=== PATIENT | female | born 1990 | race Caucasian/White ===

== ENCOUNTER 2017-09-02 14:15 | Inpatient (IN) | payer BC, MEDICAID ==
[2017-09-02] MEDS ORDERED: Sodium Chloride 0.9% 10 ML Syringe FLUSH PRN (14:22)
[2017-09-02] MEDS ORDERED: Ondansetron 4 MG/2 ML SDV IVPUSH PRN (14:22)
[2017-09-02] MEDS ORDERED: Lactated Ringers 1,000 ML IV SCH (14:30)
[2017-09-02] MEDS ORDERED: Oxytocin/Lactated Ringers 10 UNIT/1,000 ML BAG IV SCH ×2 (14:30)
--- NOTE | 2017-09-02 14:50 | PCM.LDHP ---
L&D History of Present Illness - General Date of Service: 09/02/17 Admit Problem/Dx: Patient Status Order with Admit Dx/Problem 09/02/17 14:23 Patient Status [ADT] Routine Admission Diagnosis/Problem Admission Diagnosis/Problem Gestational hypertension Source of Information: Patient History Limitations: Reports: No Limitations - History of Present Illness Introduction:: Jose Carlos Talavera is a 26 year old at 39 weeks 1 day (CONSTANCE 09/08/2017) by 11 week ultrasound. Patient is being induced for gestational hypertension after having continued elevated blood pressures in clinic today with blood pressure of 150/100 and 148/90 on repeat. She is overall doing well at today's clinic visit but did have complaint of mild headache but had not taken any medication for this. She was having some contractions last evening and throughout the day but her biggest complaint at today's clinic visit was suprapubic pain. She denies any leaking of fluid or vaginal bleeding but has had increased amounts of mucus discharge and thinks she may lost her mucous plug on Wednesday after her cervical exam. Reports good movement. She denies any vision changes or right upper quadrant pain. Reports that her sugars have been well controlled over the last 1.5 weeks. Present Illness Comments:: Jose Carlos Talavera is a 26 year old at 39 weeks 1 day (CONSTANCE 09/08/2017) by 11 week ultrasound. She has had routine care with Dr. Urias since 11 weeks gestational age. Her labs show O+ blood type with negative antibody screen. Her hematocrit was 42.8 and hemoglobin of 14.6 on 02/09/2017 and her platelets were 304 at that time. She is rubella immune. Her RPR, hepatitis B surface antigen and HIV were all negative. Gonorrhea and chlamydia swab were negative. She had a normal anatomy ultrasound at 20 weeks gestational age. She failed her one-hour glucose tolerance screen with a value of 153 and also failed her 3 hour glucose tolerance test with values of fasting with 105, 1 hour of 185, 2 hour with 139 and 3 hour with 123. On 06/22/2017 with her 1 hour glucose test her hemoglobin was 13.1 and hematocrit was 38.6 and her platelets were 239. She was GBS negative. Her hematocrit on 08/31/2017 was 40.7 and hemoglobin was 13.3 and platelets were 268. Her has been, complicated by A1 gestational diabetes that has overall been well controlled, history of anxiety and depression not on medication during the . Plan at this time is to start on sertraline 25 mg daily for 8 days and then increasing to 50 mg daily after that dose. Past Medical History : 2 Para: 1 Psychiatric History: Reports: Anxiety, Depression Social & Family History - Tobacco Use Smoking Status *Q: Former Smoker (Quit with finding out she was ) - Alcohol Use Alcohol Use History: No - Recreational Drug Use Recreational Drug Use: No H&P Review of Systems - Review of Systems: Review Of Systems: See Below General: Denies: Fever, Chills, Malaise, Weakness HEENT: Reports: Sinus Congestion. Denies: Eye Pain, Post Nasal Drip, Sore Throat, Visual Changes Pulmonary: Denies: Shortness of Breath, Wheezing, Cough Cardiovascular: Denies: Chest Pain, Palpitations, Dyspnea on Exertion Gastrointestinal: Denies: Abdominal Pain, Constipation, Diarrhea, Nausea, Vomiting Genitourinary: Denies: Dysuria, Frequency, Burning, Pain, Urgency Musculoskeletal: Reports: Other (Suprapubic pain). Denies: Back Pain, Muscle Pain Skin: Denies: Rash, Lesions Psychiatric: Reports: Anxiety. Denies: Depression Neurological: Reports: Headache (This morning) Hematologic/Lymphatic: Denies: Anemia L&D Exam - Exam Exam: See Below - OB Specific Contraction Duration (sec): None Contraction Frequency (min): None Movement: Active Heart Tones: Present Heart Tones per Min: 130 Heart Rate (FHR) Variability: Moderate (6-25 bmp) Presentation: Vertex Estimated Weight: 8 pounds by [employer] - Muñoz Score Muñoz Score Cervix Position: Midposition Muñoz Score Consistency: Soft Muñoz Score Effacement: 51-70% Muñoz Score Dilation: 3-4 cm Muñoz Score 's Station: -3 Muñoz Score Total: 7 - Exam General: Alert, Oriented, Cooperative HEENT: Conjunctiva Clear, EOMI Neck: Supple, Trachea Midline Lungs: Clear to Auscultation, Normal Respiratory Effort Cardiovascular: Regular Rate, Regular Rhythm GI/Abdominal Exam: Soft, Non-Tender, No Distention. No: Guarding, Rigid, Rebound Genitourinary: Normal external exam Back Exam: Normal Inspection, Full Range of Motion Extremities: Pedal Edema (1+ in bilateral lower extremities to knees) Skin: Warm, Dry, Intact Psychiatric: Alert, Normal Affect, Normal Mood - Problem List (1) 39 weeks gestation of SNOMED Code(s): 39069299 ICD Code: Z3A.39 - 39 WEEKS GESTATION OF Status: Acute Current Visit: Yes (2) Gestational hypertension SNOMED Code(s): 77440741 ICD Code: O13.9 - GESTATIONAL HTN W/O SIGNIFICANT PROTEINURIA, UNSP TRIMESTER Status: Acute Current Visit: Yes (3) Gestational diabetes SNOMED Code(s): 75060464 ICD Code: O24.419 - GESTATIONAL DIABETES MELLITUS IN , UNSP CONTROL Status: Acute Current Visit: Yes (4) Anxiety and depression SNOMED Code(s): 72147392 ICD Code: F41.9 - ANXIETY DISORDER, UNSPECIFIED; F32.9 - MAJOR DEPRESSIVE DISORDER, SINGLE EPISODE, UNSPECIFIED Status: Acute Current Visit: Yes Problem List Initiated/Reviewed/Updated: Yes Orders Last 24hrs: Active Orders 24 hr Category Date Time Status Patient Status [ADT] Routine ADT 09/02/17 14:23 Ordered Activity as Tolerated [RC] PFP Care 09/02/17 14:23 Ordered Bedrest [RC] ASDIRECTED Care 09/02/17 14:23 Ordered Blood Glucose Check, Bedside [RC] Q4HR Care 09/02/17 17:00 Ordered Communication Order [RC] ASDIRECTED Care 09/02/17 14:23 Ordered Communication Order [RC] ASDIRECTED Care 09/02/17 14:23 Ordered Communication Order [RC] ASDIRECTED Care 09/02/17 14:23 Ordered Communication Order [RC] ASDIRECTED Care 09/02/17 14:23 Ordered Heart Tones [RC] ASDIRECTED Care 09/02/17 14:23 Ordered Notify Provider Status Change [RC] ASDIRECTED Care 09/02/17 14:29 Ordered Notify Provider Vital Signs [RC] PRN Care 09/02/17 14:24 Active Notify Provider [RC] ASDIRECTED Care 09/02/17 14:23 Active Notify Provider [RC] PFP Care 09/02/17 14:23 Ordered Notify Provider [RC] PRN Care 09/02/17 14:23 Active Oxygen Therapy [RC] PRN Care 09/02/17 14:23 Ordered Peripheral IV Care [RC] . DIRECTED Care 09/02/17 14:23 Ordered Pump Management, Intrathecal [RC] ASDIRECTED Care 09/02/17 14:24 Ordered Urinary Catheter Assessment [RC] ASDIRECTED Care 09/02/17 14:23 Ordered Vaginal Exam [RC] ASDIRECTED Care 09/02/17 14:23 Ordered Vital Signs [RC] ASDIRECTED Care 09/02/17 14:23 Ordered Vital Signs [RC] PER UNIT ROUTINE Care 09/02/17 14:23 Active Consistent Carbohydrate Diet [DIET] Diet 09/02/17 Lunch Ordered CBC WITH AUTO DIFF [HEME] Routine Lab 09/02/17 14:22 Ordered COMPREHENSIVE METABOLIC PN,CMP [CHEM] Routine Lab 09/02/17 14:22 Ordered PROTEIN/CREATININE RATIO,URINE [URCHEM] Routine Lab 09/02/17 14:30 Ordered Lactated Ringers [Ringers, Lactated] 1,000 ml Med 09/02/17 14:30 Ordered IV ASDIRECTED Lactated Ringers [Ringers, Lactated] 1,000 ml Med 09/02/17 14:30 Ordered IV ASDIRECTED Ondansetron [Zofran] Med 09/02/17 14:22 Ordered 4 mg IVPUSH Q4H PRN Oxytocin/Lactated Ringers [Pitocin in LR 10 Units/1,000 Med 09/02/17 14:30 Ordered ML] 10 unit in 1,000 ml IV .CONTINUOUS Oxytocin/Lactated Ringers [Pitocin in LR 10 Units/1,000 Med 09/02/17 14:30 Ordered ML] 10 unit in 1,000 ml IV TITRATE Sodium Chloride 0.9% [Saline Flush] Med 09/02/17 14:22 Ordered 10 ml FLUSH ASDIRECTED PRN Blood Pressure [OM.PC] ASDIRECTED Oth 09/02/17 14:30 Ordered Deep Tendon Reflexes [WOMSER] ASDIRECTED Oth 09/02/17 14:30 Ordered Electronic Heart Tones Ext w TOCO [WOMSER] Oth 09/02/17 14:23 Ordered Routine Electronic Heart Tones Internal [WOMSER] Per Unit Oth 09/02/17 14:23 Ordered Routine Peripheral IV Insertion Adult [OM.PC] Routine Oth 09/02/17 14:23 Ordered Peripheral IV Insertion Adult [OM.PC] Routine Oth 09/02/17 14:23 Ordered Resuscitation Status Routine Resus Stat 09/02/17 14:22 Ordered Medication Orders Lactated Ringer's (Ringers, Lactated) 1,000 mls @ 100 mls/hr IV ASDIRECTED HEMANTH Lactated Ringer's (Ringers, Lactated) 1,000 mls @ 40 mls/hr IV ASDIRECTED HEMANTH Oxytocin/Lactated Ringer's (Pitocin In Lr 10 Units/1,000 Ml) 10 unit in 1,000 mls @ 100 mls/hr IV .CONTINUOUS HEMANTH Oxytocin/Lactated Ringer's (Pitocin In Lr 10 Units/1,000 Ml) 10 unit in 1,000 mls @ 12 mls/hr IV TITRATE HEMANTH; Protocol Ondansetron HCl (Zofran) 4 mg IVPUSH Q4H PRN PRN Reason: Nausea/Vomiting Sodium Chloride (Saline Flush) 10 ml FLUSH ASDIRECTED PRN PRN Reason: Keep Vein Open Assessment/Plan Comment:: Refer to observation for medically indicated induction of labor with gestational hypertension Start induction of labor with Pitocin Continuous monitoring while on Pitocin Place IV and have Lactated Ringer's at 125 ml/hr if not tolerating regular diet May have small amounts of carbohydrate controlled diet Check fingerstick blood glucose 2 hours after meals and every 4 hours Activity as tolerated [May have epidural as desired] Plans to breast and bottle feed after delivery Anticipate vaginal delivery unless otherwise indicated Lorenzo Haley M.D. 2:56 PM 09/02/2017
[2017-09-02] MEDS: Lactated Ringers 1,000 ML IV SCH ×3 (15:20→21:33)
--- NOTE | 2017-09-02 16:53 | PCM.PNLD ---
Labor Progress Note - VS & Meds Vital Signs: Last Vital Signs Temp 37.5 C 09/02/17 14:23 Pulse 92 09/02/17 14:23 Resp 18 09/02/17 14:23 BP 153/89 H 09/02/17 14:23 Pulse Ox Active Medications: Current Medications Lactated Ringer's (Ringers, Lactated) 1,000 mls @ 100 mls/hr IV ASDIRECTED HEMANTH Last Admin: 09/02/17 15:20 Dose: 100 mls/hr Lactated Ringer's (Ringers, Lactated) 1,000 mls @ 40 mls/hr IV ASDIRECTED HEMANTH Oxytocin/Lactated Ringer's (Pitocin In Lr 10 Units/1,000 Ml) 10 unit in 1,000 mls @ 100 mls/hr IV .CONTINUOUS HEMANTH Oxytocin/Lactated Ringer's (Pitocin In Lr 10 Units/1,000 Ml) 10 unit in 1,000 mls @ 12 mls/hr IV TITRATE HEMANTH; Protocol Last Titration: 09/02/17 16:39 Dose: 6 munits/min, 36 mls/hr Ondansetron HCl (Zofran) 4 mg IVPUSH Q4H PRN PRN Reason: Nausea/Vomiting Sodium Chloride (Saline Flush) 10 ml FLUSH ASDIRECTED PRN PRN Reason: Keep Vein Open - Uterine Contractions Uterine Monitoring Mode: External [place] Contraction Frequency (min): 3-4 Contraction Duration (sec): 45 Contraction Intensity: Mild to Moderate Uterine Resting Tone: Soft - Monitoring Monitor Mode: Doppler/Auscultation Heart Rate (FHR) Baseline: 140 Heart Rate (FHR) Variability: Moderate (6-25 bmp) Accelerations: Present, 15x15 Decelerations: Variable, Intermittent (<50% x 20 min) Strip Review: Category II - Vaginal Exam Dilation (cm): 4 Effacement (Percent): 80 Station: -3 Cervical Position: Midposition Sterile Vaginal Exam Performed By: Lorenzo Haley Vaginal Exam Comment: Artificial rupture of membranes with return of clear fluid. Mom and baby tolerated well. - Labor Progress (Free Text) Labor Progress: Continuing to progress well AROM with clear fluid. Continuous monitoring Continue FSBS checks every 4 hours Monitor blood pressures per unit protocol Anticipate vaginal delivery unless otherwise indicated Lorenzo Haley MD 4:53 PM 09/02/2017
[2017-09-02] MEDS ORDERED: Bupivacaine 0.25% 10 ML SDV ONE (18:00)
[2017-09-02] MEDS ORDERED: ePHEDrine 50 MG/ML SDV IVPUSH PRN (18:40)
[2017-09-02] MEDS ORDERED: fentaNYL 100 MCG/2 ML SDV EPIDUR PRN (18:40)
[2017-09-02] MEDS ORDERED: diphenhydrAMINE 50 MG/ML SDV IVPUSH PRN (18:40)
[2017-09-02] MEDS ORDERED: Bupivacaine/fentaNYL/NS 100 ML Bag EPIDUR SCH (18:45)
--- NOTE | 2017-09-02 19:04 | PCM.PREANE ---
Preanesthetic Assessment - Anesthesia/Transfusion/Family Hx Anesthesia History: Prior Anesthesia Without Reaction Family History of Anesthesia Reaction: No Transfusion History: No Prior Transfusion(s) - Review of Systems General: No Symptoms Pulmonary: No Symptoms Cardiovascular: No Symptoms Gastrointestinal: No Symptoms Neurological: No Symptoms Other: Reports: Diabetes (gestational) - Physical Assessment Respiratory Rate: 18 Vital Signs: Last Vital Signs Temp 99.5 F 09/02/17 14:23 Pulse 92 09/02/17 14:23 Resp 18 09/02/17 14:23 BP 153/89 H 09/02/17 14:23 Pulse Ox Height: 5 ft 5 in Weight: 100.329 kg ASA Class: 2 Mental Status: Alert & Oriented x3 Airway Class: Mallampati = 1 Dentition: Reports: Normal Dentition Thyro-Mental Finger Breadths: 3 Mouth Opening Finger Breadths: 3 ROM/Head Extension: Full Lungs: Clear to Auscultation, Normal Respiratory Effort Cardiovascular: Regular Rate, Regular Rhythm - Lab Values: Laboratory Last Values WBC 10.47 K/mm3 (3.98-10.04) H 09/02/17 14:45 RBC 4.13 M/mm3 (3.98-5.22) 09/02/17 14:45 Hgb 11.9 gm/L (11.2-15.7) 09/02/17 14:45 Hct 36.6 % (34.1-44.9) 09/02/17 14:45 MCV 88.6 fl (79.4-94.8) 09/02/17 14:45 MCH 28.8 pg (25.6-32.2) 09/02/17 14:45 MCHC 32.5 g/dl (32.2-35.5) 09/02/17 14:45 RDW Std Deviation 46.0 fL (36.4-46.3) 09/02/17 14:45 Plt Count 239 K/mm3 (182-369) 09/02/17 14:45 MPV 10.6 fl (9.4-12.3) 09/02/17 14:45 Neut % (Auto) 71.9 % (34.0-71.1) H 09/02/17 14:45 Lymph % (Auto) 18.1 % (19.3-51.7) L 09/02/17 14:45 [place] % (Auto) 9.3 % (4.7-12.5) 09/02/17 14:45 Eos % (Auto) 0.4 (0.7-5.8) L 09/02/17 14:45 Baso % (Auto) 0.2 % (0.1-1.2) 09/02/17 14:45 Neut # (Auto) 7.54 K/mm3 (1.56-6.13) H 09/02/17 14:45 Lymph # (Auto) 1.89 K/mm3 (1.18-3.74) 09/02/17 14:45 [place] # (Auto) 0.97 K/mm3 (0.24-0.36) H 09/02/17 14:45 Eos # (Auto) 0.04 K/mm3 (0.04-0.36) 09/02/17 14:45 Baso # (Auto) 0.02 K/mm3 (0.01-0.08) 09/02/17 14:45 Sodium 138 mEq/L (136-145) 09/02/17 14:45 Potassium 3.6 mEq/L (3.5-5.1) 09/02/17 14:45 Chloride 105 mEq/L (98-107) 09/02/17 14:45 Carbon Dioxide 22 mEq/L (21-32) 09/02/17 14:45 Anion Gap 14.6 (5-15) 09/02/17 14:45 BUN 7 mg/dL (7-18) 09/02/17 14:45 Creatinine 0.6 mg/dL (0.55-1.02) 09/02/17 14:45 Est Cr Clr Drug Dosing 130.10 mL/min 09/02/17 14:45 Estimated GFR (MDRD) > 60 mL/min (>60) 09/02/17 14:45 BUN/Creatinine Ratio 11.7 (14-18) L 09/02/17 14:45 Glucose 88 mg/dL (74-106) 09/02/17 14:45 POC Glucose 75 mg/dL (70-105) 09/02/17 17:16 Calcium 8.7 mg/dL (8.5-10.1) 09/02/17 14:45 Total Bilirubin 0.2 mg/dL (0.2-1.0) 09/02/17 14:45 AST 35 U/L (15-37) 09/02/17 14:45 ALT 30 U/L (14-59) 09/02/17 14:45 Alkaline Phosphatase 138 U/L (46-116) H 09/02/17 14:45 Total Protein 6.7 g/dl (6.4-8.2) 09/02/17 14:45 Albumin 2.7 g/dl (3.4-5.0) L 09/02/17 14:45 Globulin 4.0 gm/dL 09/02/17 14:45 Albumin/Globulin Ratio 0.7 (1-2) L 09/02/17 14:45 Ur Random Creatinine 136.7 mg/dL (30.0-125.0) H 09/02/17 16:50 U Random Total Protein 13.5 mg/dL (0.0-11.8) H 09/02/17 16:50 Protein/Creatinin Ratio 98.8 mg/g (0-149) 09/02/17 16:50 - Allergies Allergies/Adverse Reactions: Allergies Allergy/AdvReac Type Severity Reaction Status Date / Time No Known Allergies Allergy Verified 09/02/17 15:09 - Acknowledgements Anesthesia Type Planned: Epidural Pt an Appropriate Candidate for the Planned Anesthesia: Yes Alternatives and Risks of Anesthesia Discussed w Pt/Guardian: Yes Pt/Guardian Understands and Agrees with Anesthesia Plan: Yes PreAnesthesia Questionnaire Cardiovascular History: Reports: Hypertension (with preg) Respiratory History: Reports: None Gastrointestinal History: Reports: None 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: Psychiatric History: Reports: Anxiety, Depression Endocrine/Metabolic History: Reports: Diabetes, Gestational - Past Surgical History HEENT Surgical History: Reports: Tonsillectomy GI Surgical History: Reports: Colonoscopy, EGD - History Comment History Comment: vits - SUBSTANCE USE Smoking Status *Q: Former Smoker (quit nov) Tobacco Use Within Last Twelve Months: Cigarettes Second Hand Smoke Exposure: No Days Per Week of Alcohol Use: 0 Recreational Drug Use History: No - CURRENT (IN HOUSE) MEDS Current Meds: Current Medications Diphenhydramine HCl (Benadryl) 25 mg IVPUSH Q6H PRN PRN Reason: pruritis Ephedrine Sulfate (Ephedrine Sulfate) 5 mg IVPUSH ASDIRECTED PRN PRN Reason: Hypotension Fentanyl (Sublimaze) 100 mcg EPIDUR Q3H PRN PRN Reason: Pain Fentanyl/Bupivacaine HCl (Fentanyl/Bupivacaine/Ns 2 Mcg-0.125% 100 Ml) 100 ml EPIDUR ASDIRECTED HEMANTH Lactated Ringer's (Ringers, Lactated) 1,000 mls @ 100 mls/hr IV ASDIRECTED HEMANTH Last Admin: 09/02/17 15:20 Dose: 100 mls/hr Lactated Ringer's (Ringers, Lactated) 1,000 mls @ 40 mls/hr IV ASDIRECTED HEMANTH Oxytocin/Lactated Ringer's (Pitocin In Lr 10 Units/1,000 Ml) 10 unit in 1,000 mls @ 100 mls/hr IV .CONTINUOUS HEMANTH Oxytocin/Lactated Ringer's (Pitocin In Lr 10 Units/1,000 Ml) 10 unit in 1,000 mls @ 12 mls/hr IV TITRATE HEMANTH; Protocol Last Titration: 09/02/17 18:16 Dose: 7 munits/min, 42 mls/hr Ondansetron HCl (Zofran) 4 mg IVPUSH Q4H PRN PRN Reason: Nausea/Vomiting Sodium Chloride (Saline Flush) 10 ml FLUSH ASDIRECTED PRN PRN Reason: Keep Vein Open
[2017-09-02] MEDS ORDERED: Acetaminophen 325 MG Tab PO PRN (19:14)
[2017-09-02] MEDS ORDERED: Carboprost Tromethamine 250 MCG/1 ML Amp ONE (23:17)
--- NOTE | 2017-09-03 | PCM.DEL ---
L & D Note - General Info Date of Service: 09/02/17 Mother's Due Date: 09/08/17 - Delivery Note Labor: Induced by Oxytocin Delivery Outcome: Stillbirth Delivery Method: Spontaneous Vaginal Delivery-Single Presentation: Left Occiput Anterior (BERNADINE) Nuchal Cord: Present, Reduced (x 1) Anesthesia Type: Epidural Amniotic Fluid Description: Clear Episiotomy Type: None Laceration: None Placenta: Intact, Spontaneous Cord: 3 Vessels Estimated Blood Loss: 650 Resuscitation Needed: No [place]: Stimulated, Warmed, [place] Used Provider: Clovis Urias Score 1 min: 8 Score 5 min: 9 Post Delivery Events: Hemorrhage (650 mL, received pitocin, hemabate and cytotec PO) Second Stage Interventions: Reports: Pushing Effectively, Pushing, Stirrups/Leg Supports Delivery Comments (Free Text/Narrative):: Stage I: Oleg Talavera was admitted for medical induction of labor in the setting of gestational hypertension. On admission her cervix was dilated to 3 cm. She was GBS negative. She was started on Pitocin for induction of labor. She had artificial rupture membranes with clear fluid. She was given an epidural for anesthesia. She had her fingerstick blood glucoses checked throughout labor due to gestational diabetes and they were all within normal limits. She had 1 severe range blood pressure that was not sustained and did not require treatment. She progressed to complete and pushing. Stage II: On 09/02/2017 she had a normal vaginal delivery of a live female at 2305. Apgars of 8 & 9. Weight of 3080 g (6 lbs 13 oz). Length of 20 inches. There was K single nuchal cord that was reduced prior to delivery of the shoulders. Infant was delivered in BERNADINE position. The cord was doubly clamped and cut by father of . Infant was [placed on mother's abdomen]. Stage III: She had a [spontaneous] delivery of an [intact] placenta in [[place]] presentation. [Three] vessel cord. She was given pitocin and fundal massage. She had no lacerations. She had continued heavy bleeding with uterine atony and was given Hemabate 250 mcg IM. She continued to have small moderate amount of bleeding after dose of Hemabate and had straight catheter with return of approximately 200 mL of urine. She had minimal vaginal bleeding at this time after clots were cleared out of the lower uterine segment. She is given Cytotec 1000 mcg by mouth after delivery to help with uterine tone. [Mom and baby were stable to recovery]. EBL of 650 mL. Lorenzo Haley MD 11:59 PM 09/02/2017 - General Info Date of Service: 09/02/17 - Patient Data Vitals - Most Recent: Last Vital Signs Temp 37.5 C 09/02/17 14:23 Pulse 92 09/02/17 14:23 Resp 18 09/02/17 19:04 BP 153/89 H 09/02/17 14:23 Pulse Ox Weight - Most Recent: 100.329 kg I&O - Last 24 Hours: Intake & Output 09/02/17 09/02/17 09/03/17 14:59 22:59 06:59 Intake Total 0 Balance 0 Lab Results Last 24 Hours: Laboratory Results - last 24 hr 09/02/17 09/02/17 09/02/17 Range/Units 14:45 14:45 16:50 WBC 10.47 H (3.98-10.04) K/mm3 RBC 4.13 (3.98-5.22) M/mm3 Hgb 11.9 (11.2-15.7) gm/L Hct 36.6 (34.1-44.9) % MCV 88.6 (79.4-94.8) fl MCH 28.8 (25.6-32.2) pg MCHC 32.5 (32.2-35.5) g/dl RDW Std Deviation 46.0 (36.4-46.3) fL Plt Count 239 (182-369) K/mm3 MPV 10.6 (9.4-12.3) fl Neut % (Auto) 71.9 H (34.0-71.1) % Lymph % (Auto) 18.1 L (19.3-51.7) % [place] % (Auto) 9.3 (4.7-12.5) % Eos % (Auto) 0.4 L (0.7-5.8) Baso % (Auto) 0.2 (0.1-1.2) % Neut # (Auto) 7.54 H (1.56-6.13) K/mm3 Lymph # (Auto) 1.89 (1.18-3.74) K/mm3 [place] # (Auto) 0.97 H (0.24-0.36) K/mm3 Eos # (Auto) 0.04 (0.04-0.36) K/mm3 Baso # (Auto) 0.02 (0.01-0.08) K/mm3 Sodium 138 (136-145) mEq/L Potassium 3.6 (3.5-5.1) mEq/L Chloride 105 (98-107) mEq/L Carbon Dioxide 22 (21-32) mEq/L Anion Gap 14.6 (5-15) BUN 7 (7-18) mg/dL Creatinine 0.6 (0.55-1.02) mg/dL Est Cr Clr Drug Dosing 130.10 mL/min Estimated GFR (MDRD) > 60 (>60) mL/min BUN/Creatinine Ratio 11.7 L (14-18) Glucose 88 (74-106) mg/dL POC Glucose (70-105) mg/dL Calcium 8.7 (8.5-10.1) mg/dL Total Bilirubin 0.2 (0.2-1.0) mg/dL AST 35 (15-37) U/L ALT 30 (14-59) U/L Alkaline Phosphatase 138 H (46-116) U/L Total Protein 6.7 (6.4-8.2) g/dl Albumin 2.7 L (3.4-5.0) g/dl Globulin 4.0 gm/dL Albumin/Globulin Ratio 0.7 L (1-2) Ur Random Creatinine 136.7 H (30.0-125.0) mg/dL U Random Total Protein 13.5 H (0.0-11.8) mg/dL Protein/Creatinin Ratio 98.8 (0-149) mg/g 18 09/02/17 Range/Units 17:16 19:37 WBC (3.98-10.04) K/mm3 RBC (3.98-5.22) M/mm3 Hgb (11.2-15.7) gm/L Hct (34.1-44.9) % MCV (79.4-94.8) fl MCH (25.6-32.2) pg MCHC (32.2-35.5) g/dl RDW Std Deviation (36.4-46.3) fL Plt Count (182-369) K/mm3 MPV (9.4-12.3) fl Neut % (Auto) (34.0-71.1) % Lymph % (Auto) (19.3-51.7) % [place] % (Auto) (4.7-12.5) % Eos % (Auto) (0.7-5.8) Baso % (Auto) (0.1-1.2) % Neut # (Auto) (1.56-6.13) K/mm3 Lymph # (Auto) (1.18-3.74) K/mm3 [place] # (Auto) (0.24-0.36) K/mm3 Eos # (Auto) (0.04-0.36) K/mm3 Baso # (Auto) (0.01-0.08) K/mm3 Sodium (136-145) mEq/L Potassium (3.5-5.1) mEq/L Chloride (98-107) mEq/L Carbon Dioxide (21-32) mEq/L Anion Gap (5-15) BUN (7-18) mg/dL Creatinine (0.55-1.02) mg/dL Est Cr Clr Drug Dosing mL/min Estimated GFR (MDRD) (>60) mL/min BUN/Creatinine Ratio (14-18) Glucose (74-106) mg/dL POC Glucose 75 85 (70-105) mg/dL Calcium (8.5-10.1) mg/dL Total Bilirubin (0.2-1.0) mg/dL AST (15-37) U/L ALT (14-59) U/L Alkaline Phosphatase (46-116) U/L Total Protein (6.4-8.2) g/dl Albumin (3.4-5.0) g/dl Globulin gm/dL Albumin/Globulin Ratio (1-2) Ur Random Creatinine (30.0-125.0) mg/dL U Random Total Protein (0.0-11.8) mg/dL Protein/Creatinin Ratio (0-149) mg/g Med Orders - Current: Current Medications Acetaminophen (Tylenol) 650 mg PO Q6H PRN PRN Reason: Pain Diphenhydramine HCl (Benadryl) 25 mg IVPUSH Q6H PRN PRN Reason: pruritis Ephedrine Sulfate (Ephedrine Sulfate) 5 mg IVPUSH ASDIRECTED PRN PRN Reason: Hypotension Fentanyl (Sublimaze) 100 mcg EPIDUR Q3H PRN PRN Reason: Pain Last Admin: 09/02/17 19:04 Dose: 100 mcg Fentanyl/Bupivacaine HCl (Fentanyl/Bupivacaine/Ns 2 Mcg-0.125% 100 Ml) 100 ml EPIDUR ASDIRECTED HEMANTH Last Admin: 09/02/17 19:04 Dose: 100 ml Lactated Ringer's (Ringers, Lactated) 1,000 mls @ 100 mls/hr IV ASDIRECTED HEMANTH Last Admin: 09/02/17 21:33 Dose: 500 mls/hr Lactated Ringer's (Ringers, Lactated) 1,000 mls @ 40 mls/hr IV ASDIRECTED HEMANTH Oxytocin/Lactated Ringer's (Pitocin In Lr 10 Units/1,000 Ml) 10 unit in 1,000 mls @ 100 mls/hr IV .CONTINUOUS HEMANTH Oxytocin/Lactated Ringer's (Pitocin In Lr 10 Units/1,000 Ml) 10 unit in 1,000 mls @ 12 mls/hr IV TITRATE HEMANTH; Protocol Last Titration: 09/02/17 21:54 Dose: 5 munits/min, 30 mls/hr Ondansetron HCl (Zofran) 4 mg IVPUSH Q4H PRN PRN Reason: Nausea/Vomiting Sodium Chloride (Saline Flush) 10 ml FLUSH ASDIRECTED PRN PRN Reason: Keep Vein Open Discontinued Medications Carboprost Tromethamine (Hemabate Ds) Confirm Administered Dose 250 mcg .ROUTE .[facility] Stop: 09/02/17 23:18 - Problem List & Annotations (1) 39 weeks gestation of SNOMED Code(s): 37481123 Code(s): Z3A.39 - 39 WEEKS GESTATION OF Status: Acute Current Visit: Yes (2) Gestational hypertension SNOMED Code(s): 32638729 Code(s): O13.9 - GESTATIONAL HTN W/O SIGNIFICANT PROTEINURIA, UNSP TRIMESTER Status: Acute Current Visit: Yes (3) Gestational diabetes SNOMED Code(s): 68286238 Code(s): O24.419 - GESTATIONAL DIABETES MELLITUS IN , UNSP CONTROL Status: Acute Current Visit: Yes (4) Anxiety and depression SNOMED Code(s): 63137327 Code(s): F41.9 - ANXIETY DISORDER, UNSPECIFIED; F32.9 - MAJOR DEPRESSIVE DISORDER, SINGLE EPISODE, UNSPECIFIED Status: Acute Current Visit: Yes (5) Vaginal delivery SNOMED Code(s): 747735722 Code(s): O80 - ENCOUNTER FOR FULL-TERM UNCOMPLICATED DELIVERY Status: Acute Current Visit: Yes (6) hemorrhage SNOMED Code(s): 31936839 Code(s): O72.1 - OTHER IMMEDIATE HEMORRHAGE Status: Acute Current Visit: Yes - Problem List Review Problem List Initiated/Reviewed/Updated: Yes - My Orders Last 24 Hours: My Active Orders 09/02/17 14:22 Ondansetron [Zofran] 4 mg IVPUSH Q4H PRN Sodium Chloride 0.9% [Saline Flush] 10 ml FLUSH ASDIRECTED PRN Resuscitation Status Routine 09/02/17 14:23 Patient Status [ADT] Routine Activity as Tolerated [RC] PFP Bedrest [RC] ASDIRECTED Communication Order [RC] ASDIRECTED Communication Order [RC] ASDIRECTED Communication Order [RC] ASDIRECTED Communication Order [RC] ASDIRECTED Heart Tones [RC] ASDIRECTED Notify Provider [RC] ASDIRECTED Notify Provider [RC] PFP Notify Provider [RC] PRN Oxygen Therapy [RC] PRN Peripheral IV Care [RC] . DIRECTED Urinary Catheter Assessment [RC] ASDIRECTED Vital Signs [RC] PER UNIT ROUTINE Electronic Heart Tones Ext w TOCO [WOMSER] Routine Electronic Heart Tones Internal [WOMSER] Per Unit Routine Peripheral IV Insertion Adult [OM.PC] Routine Peripheral IV Insertion Adult [OM.PC] Routine 09/02/17 14:24 Notify Provider Vital Signs [RC] PRN Pump Management, Intrathecal [RC] ASDIRECTED 09/02/17 14:29 Notify Provider Status Change [RC] ASDIRECTED 09/02/17 14:30 Lactated Ringers [Ringers, Lactated] 1,000 ml IV ASDIRECTED Lactated Ringers [Ringers, Lactated] 1,000 ml IV ASDIRECTED Oxytocin/Lactated Ringers [Pitocin in LR 10 Units/1,000 ML] 10 unit in 1,000 ml IV .CONTINUOUS Oxytocin/Lactated Ringers [Pitocin in LR 10 Units/1,000 ML] 10 unit in 1,000 ml IV TITRATE Blood Pressure [OM.PC] ASDIRECTED Deep Tendon Reflexes [WOMSER] ASDIRECTED 09/02/17 16:50 PROTEIN/CREATININE RATIO,URINE [URCHEM] Routine 09/02/17 17:00 Blood Glucose Check, Bedside [RC] Q4HR 09/02/17 19:14 Acetaminophen [Tylenol] 650 mg PO Q6H PRN 09/02/17 23:48 Patient Status Manage Transfer [TRANSFER] Routine 09/02/17 Lunch Consistent Carbohydrate Diet [DIET] - Plan Plan:: Admit to inpatient following normal spontaneous vaginal delivery, complicated by hemorrhage of 650 mL Continue Pitocin and lactated Ringer's per unit protocol following delivery of placenta Give patient 1000 mcg Cytotec by mouth once to help with uterine atony Give Lomotil 1 tab once by mouth due to use of Hemabate for hemorrhage Albuterol inhaler due to chest tightness with use of Hemabate Regular diet Vitals per unit routine Monitor lochia Activity as tolerated Plans to breast and bottle feed Anticipate discharge home on day #2 due to timing of delivery at 11 PM on 09/02/2017 Lorenzo Haley M.D. 11:59 PM 09/02/2017
[2017-09-03] MEDS ORDERED: Carboprost Tromethamine 250 MCG/1 ML Amp IM PRN (00:01)
[2017-09-03] MEDS ORDERED: Acetaminophen 325 MG Tab PO PRN (00:01)
[2017-09-03] MEDS ORDERED: Benzocaine/Menthol 20%-0.5% Spray 56 GM Canister TOP PRN (00:01)
[2017-09-03] MEDS ORDERED: Hydrocortisone Acetate 25 MG Supp RECTAL PRN (00:01)
[2017-09-03] MEDS ORDERED: Lanolin 100% Cream 7 GM Tube TOP PRN (00:01)
[2017-09-03] MEDS ORDERED: Lactated Ringers 1,000 ML IV SCH (00:01)
[2017-09-03] MEDS ORDERED: Misoprostol 200 MCG Tab PO PRN ×2 (00:01→00:50)
[2017-09-03] MEDS ORDERED: Atropine/Diphenoxylate 0.025-2.5 MG Tab PO ONE (00:01)
[2017-09-03] MEDS ORDERED: Docusate Sodium 100 MG Cap PO PRN (00:01)
[2017-09-03] MEDS ORDERED: Oxytocin/Lactated Ringers 10 UNIT/1,000 ML BAG IV SCH (00:01)
[2017-09-03] MEDS ORDERED: Witch Hazel Medicated Pads 100/Jar TOP PRN (00:01)
[2017-09-03] MEDS ORDERED: Albuterol 0.083% 2.5 MG/3 ML Neb Soln ONE (00:04)
[2017-09-03] MEDS ORDERED: Albuterol 0.021% 0.63 MG/3 ML Neb Soln NEB PRN (00:05)
[2017-09-03] MEDS ORDERED: Loperamide 2 MG Cap PO ONE (00:30)
[2017-09-03] MEDS ORDERED: Misoprostol 200 MCG Tab ONE ×2 (00:43→00:44)
[2017-09-03] MEDS ORDERED: Misoprostol 100 MCG Tab PO PRN (00:52)
[2017-09-03] MEDS: Ibuprofen 600 MG Tab PO PRN ×2 (05:37→16:01)
--- NOTE | 2017-09-03 08:11 | PCM48HPAN ---
Post Anesthesia Note - EVALUATION WITHIN 48HRS OF ANESTHETIC Vital Signs in Normal Range: Yes Patient Participated in Evaluation: Yes Respiratory Function Stable: Yes Airway Patent: Yes Cardiovascular Function Stable: Yes Hydration Status Stable: Yes Pain Control Satisfactory: Yes Nausea and Vomiting Control Satisfactory: Yes Mental Status Recovered: Yes Pulse Rate: 91 Resp Rate: 18 Blood Pressure: 149/100
[2017-09-03] MEDS ORDERED: Sertraline 25 MG Tab PO SCH (09:00)
--- NOTE | 2017-09-03 09:40 | PCM.SN ---
- Free Text/Narrative Note: Post Progress Note PPD # 1 Subjective: Doing well overall. Ambulating without difficulty. Lochia minimal. Voiding without difficulty. Tolerating regular diet without nausea or vomiting. Pain controlled with oral medications. Reports minimal amounts of cramping especially with breast-feeding. Reports mild back pain at the site of epidural but overall able to be controlled with oral medications. Breast and bottle feeding with minimal difficulty. Objective: Vitals: Vital Signs - 24 hr 09/02/17 09/02/17 09/02/17 14:23 14:30 15:00 Temperature [ 37.5 C Temporal] Pulse, 92 86 Peripheral Pulse, 92 Peripheral [ Left] Respiratory 18 Rate Blood Pressure 153/89 H 139/92 H Blood Pressure 153/89 H [Left Arm] O2 Sat by Pulse Oximetry O2 Sat by Pulse Oximetry [Room Air] 09/02/17 09/02/17 09/02/17 15:30 16:01 16:44 Temperature [ Temporal] Pulse, 88 79 86 Peripheral Pulse, Peripheral [ Left] Respiratory Rate Blood Pressure 152/101 H 152/80 H 154/86 H Blood Pressure [Left Arm] O2 Sat by Pulse Oximetry O2 Sat by Pulse Oximetry [Room Air] 09/02/17 09/02/17 09/02/17 17:01 17:30 18:00 Temperature [ Temporal] Pulse, 76 84 76 Peripheral Pulse, Peripheral [ Left] Respiratory Rate Blood Pressure 140/73 158/92 H 153/83 H Blood Pressure [Left Arm] O2 Sat by Pulse Oximetry O2 Sat by Pulse Oximetry [Room Air] 09/02/17 09/02/17 09/02/17 18:31 19:00 19:04 Temperature [ Temporal] Pulse, 76 93 Peripheral Pulse, Peripheral [ Left] Respiratory 18 Rate Blood Pressure 146/69 H 141/72 H Blood Pressure [Left Arm] O2 Sat by Pulse Oximetry O2 Sat by Pulse Oximetry [Room Air] 09/02/17 09/02/17 09/02/17 19:30 20:03 20:31 Temperature [ Temporal] Pulse, 72 72 68 Peripheral Pulse, Peripheral [ Left] Respiratory Rate Blood Pressure 139/72 142/81 H Blood Pressure [Left Arm] O2 Sat by Pulse 100 Oximetry O2 Sat by Pulse Oximetry [Room Air] 05/17/18 05/17/18 05/17/18 21:00 21:31 22:01 Temperature [ Temporal] Pulse, 67 68 70 Peripheral Pulse, Peripheral [ Left] Respiratory Rate Blood Pressure 146/97 H 132/87 152/81 H Blood Pressure [Left Arm] O2 Sat by Pulse Oximetry O2 Sat by Pulse Oximetry [Room Air] 09/02/17 09/02/17 09/03/17 23:24 23:31 00:08 Temperature [ Temporal] Pulse, 85 91 Peripheral Pulse, Peripheral [ Left] Respiratory Rate Blood Pressure 130/97 H 149/100 H Blood Pressure [Left Arm] O2 Sat by Pulse Oximetry O2 Sat by Pulse 96 Oximetry [Room Air] 09/03/17 08:11 Temperature [ Temporal] Pulse, 91 Peripheral Pulse, Peripheral [ Left] Respiratory 18 Rate Blood Pressure 149/100 H Blood Pressure [Left Arm] O2 Sat by Pulse Oximetry O2 Sat by Pulse Oximetry [Room Air] Physical Exam General: Alert and oriented, no acute distress Lungs: Clear to auscultation bilaterally Heart: Regular rate and rhythm Abdomen: Soft, minimal appropriate tenderness, non-distended, fundus midline, nontender, and below the umbilicus Extremities: No edema Laboratory Tests 09/02/17 09/02/17 09/02/17 Range/Units 14:45 14:45 16:50 WBC 10.47 H (3.98-10.04) K/mm3 RBC 4.13 (3.98-5.22) M/mm3 Hgb 11.9 (11.2-15.7) gm/L Hct 36.6 (34.1-44.9) % MCV 88.6 (79.4-94.8) fl MCH 28.8 (25.6-32.2) pg MCHC 32.5 (32.2-35.5) g/dl RDW Std Deviation 46.0 (36.4-46.3) fL Plt Count 239 (182-369) K/mm3 MPV 10.6 (9.4-12.3) fl Neut % (Auto) 71.9 H (34.0-71.1) % Lymph % (Auto) 18.1 L (19.3-51.7) % [place] % (Auto) 9.3 (4.7-12.5) % Eos % (Auto) 0.4 L (0.7-5.8) Baso % (Auto) 0.2 (0.1-1.2) % Neut # (Auto) 7.54 H (1.56-6.13) K/mm3 Lymph # (Auto) 1.89 (1.18-3.74) K/mm3 [place] # (Auto) 0.97 H (0.24-0.36) K/mm3 Eos # (Auto) 0.04 (0.04-0.36) K/mm3 Baso # (Auto) 0.02 (0.01-0.08) K/mm3 Sodium 138 (136-145) mEq/L Potassium 3.6 (3.5-5.1) mEq/L Chloride 105 (98-107) mEq/L Carbon Dioxide 22 (21-32) mEq/L Anion Gap 14.6 (5-15) BUN 7 (7-18) mg/dL Creatinine 0.6 (0.55-1.02) mg/dL Est Cr Clr Drug Dosing 130.10 mL/min Estimated GFR (MDRD) > 60 (>60) mL/min BUN/Creatinine Ratio 11.7 L (14-18) Glucose 88 (74-106) mg/dL POC Glucose (70-105) mg/dL Calcium 8.7 (8.5-10.1) mg/dL Total Bilirubin 0.2 (0.2-1.0) mg/dL AST 35 (15-37) U/L ALT 30 (14-59) U/L Alkaline Phosphatase 138 H (46-116) U/L Total Protein 6.7 (6.4-8.2) g/dl Albumin 2.7 L (3.4-5.0) g/dl Globulin 4.0 gm/dL Albumin/Globulin Ratio 0.7 L (1-2) Ur Random Creatinine 136.7 H (30.0-125.0) mg/dL U Random Total Protein 13.5 H (0.0-11.8) mg/dL Protein/Creatinin Ratio 98.8 (0-149) mg/g 09/02/17 09/02/17 09/03/17 Range/Units 17:16 19:37 05:50 WBC 17.25 H (3.98-10.04) K/mm3 RBC 3.56 L (3.98-5.22) M/mm3 Hgb 10.2 L (11.2-15.7) gm/L Hct 31.5 L (34.1-44.9) % MCV 88.5 (79.4-94.8) fl MCH 28.7 (25.6-32.2) pg MCHC 32.4 (32.2-35.5) g/dl RDW Std Deviation 44.6 (36.4-46.3) fL Plt Count 216 (182-369) K/mm3 MPV 10.9 (9.4-12.3) fl Neut % (Auto) 81.0 H (34.0-71.1) % Lymph % (Auto) 12.9 L (19.3-51.7) % [place] % (Auto) 5.7 (4.7-12.5) % Eos % (Auto) 0.1 L (0.7-5.8) Baso % (Auto) 0.1 (0.1-1.2) % Neut # (Auto) 13.98 H (1.56-6.13) K/mm3 Lymph # (Auto) 2.22 (1.18-3.74) K/mm3 [place] # (Auto) 0.98 H (0.24-0.36) K/mm3 Eos # (Auto) 0.01 L (0.04-0.36) K/mm3 Baso # (Auto) 0.02 (0.01-0.08) K/mm3 Sodium (136-145) mEq/L Potassium (3.5-5.1) mEq/L Chloride (98-107) mEq/L Carbon Dioxide (21-32) mEq/L Anion Gap (5-15) BUN (7-18) mg/dL Creatinine (0.55-1.02) mg/dL Est Cr Clr Drug Dosing mL/min Estimated GFR (MDRD) (>60) mL/min BUN/Creatinine Ratio (14-18) Glucose (74-106) mg/dL POC Glucose 75 85 (70-105) mg/dL Calcium (8.5-10.1) mg/dL Total Bilirubin (0.2-1.0) mg/dL AST (15-37) U/L ALT (14-59) U/L Alkaline Phosphatase (46-116) U/L Total Protein (6.4-8.2) g/dl Albumin (3.4-5.0) g/dl Globulin gm/dL Albumin/Globulin Ratio (1-2) Ur Random Creatinine (30.0-125.0) mg/dL U Random Total Protein (0.0-11.8) mg/dL Protein/Creatinin Ratio (0-149) mg/g ASSESSMENT: 26-year-old female G 2 P 2002 s/p normal vaginal delivery with hemorrhage PPD #1, complicated by gestational hypertension, gestational diabetes controlled with diet, anxiety and depression and hemorrhage with delivery PLAN: Doing well Breast and bottle feeding with minimal difficulty. Assist as needed Lochia minimal. Continue to monitor for appropriate lochia. Patient with drop in hematocrit 36.6 to 31.5 this morning. Appropriate drop in hematocrit given blood loss. Continue to monitor vital signs for possible signs of anemia Continue routine care Anticipate discharge home today Lorenzo Haley MD 9:37 AM 09/03/2017
[2017-09-03] MEDS: Prenatal Multivitamin with Calcium/Folic Acid/Iron Tab PO SCH (20:51)
[2017-09-04] MEDS ORDERED: Labetalol 100 MG Tab PO ONE (01:54)
[2017-09-04] MEDS: Ibuprofen 600 MG Tab PO PRN (02:05)
--- NOTE | 2017-09-04 08:12 | PCM.PNPP ---
- General Info Date of Service: 09/04/17 Functional Status: Reports: Pain Controlled, Tolerating Diet, Ambulating, Urinating - Review of Systems HEENT: Reports: Headaches (Intermittent ) Pulmonary: Reports: No Symptoms Cardiovascular: Reports: No Symptoms Gastrointestinal: Reports: No Symptoms Genitourinary: Reports: No Symptoms Musculoskeletal: Reports: No Symptoms - Patient Data Vital Signs - Most Recent: Last Vital Signs Temp 36.6 C 09/04/17 05:12 Pulse 84 09/04/17 05:12 Resp 16 09/04/17 05:12 BP 121/75 09/04/17 05:12 Pulse Ox 96 09/04/17 05:12 Weight - Most Recent: 100.329 kg Lab Results - Last 24 Hours: Laboratory Results - last 24 hr 09/04/17 09/04/17 Range/Units 02:02 02:02 WBC 9.75 (3.98-10.04) K/mm3 RBC 3.26 L (3.98-5.22) M/mm3 Hgb 9.5 L (11.2-15.7) gm/L Hct 29.4 L (34.1-44.9) % MCV 90.2 (79.4-94.8) fl MCH 29.1 (25.6-32.2) pg MCHC 32.3 (32.2-35.5) g/dl RDW Std Deviation 45.4 (36.4-46.3) fL Plt Count 172 L (182-369) K/mm3 MPV 10.0 (9.4-12.3) fl Neut % (Auto) 57.4 (34.0-71.1) % Lymph % (Auto) 33.5 (19.3-51.7) % [place] % (Auto) 7.6 (4.7-12.5) % Eos % (Auto) 1.1 (0.7-5.8) Baso % (Auto) 0.2 (0.1-1.2) % Neut # (Auto) 5.59 (1.56-6.13) K/mm3 Lymph # (Auto) 3.27 (1.18-3.74) K/mm3 [place] # (Auto) 0.74 H (0.24-0.36) K/mm3 Eos # (Auto) 0.11 (0.04-0.36) K/mm3 Baso # (Auto) 0.02 (0.01-0.08) K/mm3 Creatinine 0.7 (0.55-1.02) mg/dL Est Cr Clr Drug Dosing 111.51 mL/min Estimated GFR (MDRD) > 60 (>60) mL/min AST 33 (15-37) U/L ALT 30 (14-59) U/L Med Orders - Current: Current Medications Acetaminophen (Tylenol) 650 mg PO Q6H PRN PRN Reason: mild pain or fever Albuterol (Proventil Neb Soln) 0.63 mg NEB Q4HRRT PRN PRN Reason: Shortness of Breath Last Admin: 09/03/17 04:50 Dose: 0.63 mg Benzocaine/Menthol (Dermoplast Pain Relief [place]) 0 gm TOP ASDIRECTED PRN PRN Reason: Perineal Comfort Measure Carboprost Tromethamine (Hemabate Ds) 250 mcg IM ASDIRECTED PRN PRN Reason: Excessive vaginal bleeding Last Admin: 09/03/17 01:06 Dose: 250 mcg Docusate Sodium (Colace) 100 mg PO BID PRN PRN Reason: Constipation Emollient Ointment (Lansinoh Hpa) 0 gm TOP ASDIRECTED PRN PRN Reason: Sore Nipples Hydrocortisone Acetate (Anucort-Hc) 25 mg RECTAL BID PRN PRN Reason: Hemorrhoid pain Lactated Ringer's (Ringers, Lactated) 1,000 mls @ 125 mls/hr IV ASDIRECTED [facility] Oxytocin/Lactated Ringer's (Pitocin In Lr 10 Units/1,000 Ml) 10 unit in 1,000 mls @ 100 mls/hr IV TITRATE [facility]; Protocol Ibuprofen (Motrin) 600 mg PO Q6H PRN PRN Reason: Mild pain or fever Last Admin: 09/04/17 02:05 Dose: 600 mg Misoprostol (Cytotec) 400 mcg PO ONETIME PRN PRN Reason: excessive vaginal bleeding Last Admin: 09/03/17 01:02 Dose: 400 mcg Misoprostol (Cytotec) 600 mcg PO ONETIME PRN PRN Reason: excessive vaginal bleeding Last Admin: 09/03/17 01:03 Dose: 600 mcg Prenat Multivit/[place]/Iron/Folic Ac ( Plus Iron) 1 each PO DAILY [facility] Last Admin: 09/03/17 20:51 Dose: Not Given Sertraline HCl (Zoloft) 25 mg PO BEDTIME [facility] Ray Murillo (Tucks) 1 pad TOP ASDIRECTED PRN PRN Reason: Hemorrhoid pain Discontinued Medications Acetaminophen (Tylenol) 650 mg PO Q6H PRN PRN Reason: Pain Albuterol (Proventil Neb Soln) Confirm Administered Dose 2.5 mg .ROUTE .STK-MED ONE Stop: 09/03/17 00:05 Last Admin: 09/03/17 00:11 Dose: 2.5 mg Bupivacaine HCl (Sensorcaine-Mpf 0.25%) 10 ml .ROUTE .STK-MED ONE Stop: 09/02/17 18:01 Carboprost Tromethamine (Hemabate Ds) Confirm Administered Dose 250 mcg .ROUTE .STK-MED ONE Stop: 09/02/17 23:18 Last Admin: 09/03/17 10:01 Dose: Not Given Diphenhydramine HCl (Benadryl) 25 mg IVPUSH Q6H PRN PRN Reason: pruritis Diphenoxylate HCl/Atropine (Lomotil 0.025-2.5 Mg) 1 tab PO ONETIME ONE Stop: 09/03/17 00:02 Last Admin: 09/03/17 10:01 Dose: Not Given Ephedrine Sulfate (Ephedrine Sulfate) 5 mg IVPUSH ASDIRECTED PRN PRN Reason: Hypotension Fentanyl (Sublimaze) 100 mcg EPIDUR Q3H PRN PRN Reason: Pain Last Admin: 09/02/17 19:04 Dose: 100 mcg Fentanyl/Bupivacaine HCl (Fentanyl/Bupivacaine/Ns 2 Mcg-0.125% 100 Ml) 100 ml EPIDUR ASDIRECTED [facility] Last Admin: 09/02/17 19:04 Dose: 100 ml Lactated Ringer's (Ringers, Lactated) 1,000 mls @ 100 mls/hr IV ASDIRECTED [facility] Last Admin: 09/02/17 21:33 Dose: 500 mls/hr Lactated Ringer's (Ringers, Lactated) 1,000 mls @ 40 mls/hr IV ASDIRECTED [facility] Oxytocin/Lactated Ringer's (Pitocin In Lr 10 Units/1,000 Ml) 10 unit in 1,000 mls @ 100 mls/hr IV .CONTINUOUS [facility]AN[facility] Oxytocin/Lactated Ringer's (Pitocin In Lr 10 Units/1,000 Ml) 10 unit in 1,000 mls @ 12 mls/hr IV TITRATE [facility]; Protocol Last Titration: 09/02/17 21:54 Dose: 5 munits/min, 30 mls/hr Labetalol HCl (Normodyne) 400 mg PO ONETIME ONE Stop: 09/04/17 01:55 Last Admin: 09/04/17 02:05 Dose: 400 mg Loperamide HCl (Imodium) 2 mg PO ONETIME ONE Stop: 09/03/17 00:31 Last Admin: 09/03/17 01:00 Dose: 2 mg Misoprostol (Cytotec) Confirm Administered Dose 200 mcg .ROUTE .STK-MED ONE Stop: 09/03/17 00:44 Last Admin: 09/03/17 09:58 Dose: Not Given Misoprostol (Cytotec) Confirm Administered Dose 200 mcg .ROUTE .STK-MED ONE Stop: 09/03/17 00:45 Last Admin: 09/03/17 09:58 Dose: Not Given Ondansetron HCl (Zofran) 4 mg IVPUSH Q4H PRN PRN Reason: Nausea/Vomiting Sertraline HCl (Zoloft) 25 mg PO DAILY [facility] Last Admin: 09/03/17 20:50 Dose: 25 mg Sodium Chloride (Saline Flush) 10 ml FLUSH ASDIRECTED PRN PRN Reason: Keep Vein Open - Infant Interaction Infant Disposition, : in Room with Family Interaction: Holding Infant Infant Feeding: Breastfed ; Nursed Well Support Person: Significant Other - Recovery Exam Fundal Tone: Firm Fundal Level: 1 Fingerbreadths Below Umbilicus Fundal Placement: Midline Lochia Amount: Small Lochia Color: Rubra/Red Perineum Description: Intact, Minimal Bruising/Swelling Episiotomy/Laceration: None Bladder Status: Voiding Urinary Elimination: Voided - Exam General: Alert, Oriented, Cooperative Lungs: Clear to Auscultation, Normal Respiratory Effort Cardiovascular: Regular Rate, Regular Rhythm GI/Abdominal Exam: Soft, Non-Tender Extremities: Normal Inspection Skin: Warm, Dry, Intact Neurological: Other (+3 patellar reflex on left ) - Problem List & Annotations (1) 39 weeks gestation of SNOMED Code(s): 53437146 Code(s): Z3A.39 - 39 WEEKS GESTATION OF Status: Acute Current Visit: Yes (2) Gestational hypertension SNOMED Code(s): 25562466 Code(s): O13.9 - GESTATIONAL HTN W/O SIGNIFICANT PROTEINURIA, UNSP TRIMESTER Status: Acute Current Visit: Yes (3) hemorrhage SNOMED Code(s): 11453083 Code(s): O72.1 - OTHER IMMEDIATE HEMORRHAGE Status: Acute Current Visit: Yes (4) Vaginal delivery SNOMED Code(s): 689339692 Code(s): O80 - ENCOUNTER FOR FULL-TERM UNCOMPLICATED DELIVERY Status: Acute Current Visit: Yes - Problem List Review Problem List Initiated/Reviewed/Updated: Yes - Assessment Assessment:: PPD#2 from after IOL for gestational HTN - Plan Plan:: Gestational HTN * Patient with mostly mild range BP's throughout day yesterday. At about 0200 this AM reported to nurses feeling lightheaded and was found to have BP's of 171 /96 and 165/99. Labs done and WNL. She was given a dose of 400 mg PO labetalol. BP's since have been normal range. Will try to adjust dosing today so that she is more in mild range zone. Potential for discharge late today vs tomorrow pending clinical course. * Routine cares
[2017-09-04] MEDS ORDERED: Labetalol 100 MG Tab PO SCH ×2 (14:00)
[2017-09-04] MEDS: Prenatal Multivitamin with Calcium/Folic Acid/Iron Tab PO SCH (14:30)
--- NOTE | 2017-09-04 14:32 | PCM.DCSUM1 ---
Discharge Summary - Discharge Data Discharge Date: 09/04/17 Discharge Disposition: Home, Self-Care 01 Condition: Good - Discharge Diagnosis/Problem(s) (1) 39 weeks gestation of SNOMED Code(s): 93752067 ICD Code: Z3A.39 - 39 WEEKS GESTATION OF Status: Acute Current Visit: Yes (2) Gestational hypertension SNOMED Code(s): 05423613 ICD Code: O13.9 - GESTATIONAL HTN W/O SIGNIFICANT PROTEINURIA, UNSP TRIMESTER Status: Acute Current Visit: Yes Qualifiers: Trimester: third trimester Qualified Code(s): O13.3 - Gestational [ -induced] hypertension without significant proteinuria, third trimester (3) hemorrhage SNOMED Code(s): 11777630 ICD Code: O72.1 - OTHER IMMEDIATE HEMORRHAGE Status: Acute Current Visit: Yes Qualifiers: hemorrhage type: other immediate Qualified Code(s): O72.1 - Other immediate hemorrhage (4) Vaginal delivery SNOMED Code(s): 549356857 ICD Code: O80 - ENCOUNTER FOR FULL-TERM UNCOMPLICATED DELIVERY Status: Acute Current Visit: Yes - Patient Summary/Data Complications: None Consults: None Recommended Follow-up Testing/Procedures: Follow up with Dr. Urias/Dr. Haley in 1 week for BP check Hospital Course: Patient is a 26 y/o at 39 1/7 wks who presented for IOL for gestational HTN. She progressed well to complete dilation. Delivery notable for PPH. See delivery note for full details. she did require initiation of anti- hypertensives on PPD#2 in early AM for findings of severe BP's. She responded well to these and strongly desired discharge to home. She was monitored for remainder of day and was discharged to home with plan for follow up in clinic in 1 week - Patient Instructions Diet: Regular Diet as Tolerated Activity: As Tolerated Activity, Other: Pelvic Rest for 6 weeks Driving: May Drive Today Showering/Bathing: May Shower Showering/Bathing, Other: May Bathe Notify Provider of: Fever, Increased Pain, Swelling and Redness, Drainage, Nausea and/or Vomiting - Discharge Plan Prescriptions/Med Rec: Labetalol HCl [Labetalol] 400 mg PO Q12H #56 tablet Sertraline [Zoloft] 50 mg PO DAILY #60 tablet Home Medications: Home Meds Sertraline [Zoloft] 50 mg PO DAILY #60 tablet 09/03/17 [Rx] Docusate Sodium [Colace] 100 mg PO BID PRN cap 09/04/17 [Rx] Ibuprofen [Motrin] 600 mg PO Q6H PRN tablet 09/04/17 [Rx] Labetalol HCl [Labetalol] 400 mg PO Q12H #56 tablet 09/04/17 [Rx] Patient Handouts: and Mastitis, Home Care Instructions for Mom, Breast Engorgement, Breast Pumping Tips, [id number] Referrals: Clovis Urias MD [Physician] - (1-2 weeks for BP check and mood check ) - Discharge Summary/Plan Comment DC Time >30 min.: No - Patient Data Vitals - Most Recent: Last Vital Signs Temp 36.9 C 09/04/17 08:17 Pulse 79 09/04/17 14:20 Resp 14 09/04/17 08:17 BP 149/91 H 09/04/17 14:20 Pulse Ox 99 09/04/17 14:20 Weight - Most Recent: 100.329 kg I&O - Last 24 hours: Intake & Output 09/03/17 09/04/17 09/04/17 22:59 06:59 14:59 Intake Total 120 Balance 120 Lab Results - Last 24 hrs: Laboratory Results - last 24 hr 09/04/17 09/04/17 Range/Units 02:02 02:02 WBC 9.75 (3.98-10.04) K/mm3 RBC 3.26 L (3.98-5.22) M/mm3 Hgb 9.5 L (11.2-15.7) gm/L Hct 29.4 L (34.1-44.9) % MCV 90.2 (79.4-94.8) fl MCH 29.1 (25.6-32.2) pg MCHC 32.3 (32.2-35.5) g/dl RDW Std Deviation 45.4 (36.4-46.3) fL Plt Count 172 L (182-369) K/mm3 MPV 10.0 (9.4-12.3) fl Neut % (Auto) 57.4 (34.0-71.1) % Lymph % (Auto) 33.5 (19.3-51.7) % [place] % (Auto) 7.6 (4.7-12.5) % Eos % (Auto) 1.1 (0.7-5.8) Baso % (Auto) 0.2 (0.1-1.2) % Neut # (Auto) 5.59 (1.56-6.13) K/mm3 Lymph # (Auto) 3.27 (1.18-3.74) K/mm3 [place] # (Auto) 0.74 H (0.24-0.36) K/mm3 Eos # (Auto) 0.11 (0.04-0.36) K/mm3 Baso # (Auto) 0.02 (0.01-0.08) K/mm3 Creatinine 0.7 (0.55-1.02) mg/dL Est Cr Clr Drug Dosing 111.51 mL/min Estimated GFR (MDRD) > 60 (>60) mL/min AST 33 (15-37) U/L ALT 30 (14-59) U/L Med Orders - Current: Current Medications Acetaminophen (Tylenol) 650 mg PO Q6H PRN PRN Reason: mild pain or fever Albuterol (Proventil Neb Soln) 0.63 mg NEB Q4HRRT PRN PRN Reason: Shortness of Breath Last Admin: 09/03/17 04:50 Dose: 0.63 mg Benzocaine/Menthol (Dermoplast Pain Relief [place]) 0 gm TOP ASDIRECTED PRN PRN Reason: Perineal Comfort Measure Carboprost Tromethamine (Hemabate Ds) 250 mcg IM ASDIRECTED PRN PRN Reason: Excessive vaginal bleeding Last Admin: 09/03/17 01:06 Dose: 250 mcg Docusate Sodium (Colace) 100 mg PO BID PRN PRN Reason: Constipation Emollient Ointment (Lansinoh Hpa) 0 gm TOP ASDIRECTED PRN PRN Reason: Sore Nipples Hydrocortisone Acetate (Anucort-Hc) 25 mg RECTAL BID PRN PRN Reason: Hemorrhoid pain Lactated Ringer's (Ringers, Lactated) 1,000 mls @ 125 mls/hr IV ASDIRECTED [facility] Oxytocin/Lactated Ringer's (Pitocin In Lr 10 Units/1,000 Ml) 10 unit in 1,000 mls @ 100 mls/hr IV TITRATE [facility]EMAN[facility]; Protocol Ibuprofen (Motrin) 600 mg PO Q6H PRN PRN Reason: Mild pain or fever Last Admin: 09/04/17 02:05 Dose: 600 mg Labetalol HCl (Normodyne) 400 mg PO Q12H [facility] Last Admin: 09/04/17 14:19 Dose: 400 mg Misoprostol (Cytotec) 400 mcg PO ONETIME PRN PRN Reason: excessive vaginal bleeding Last Admin: 09/03/17 01:02 Dose: 400 mcg Misoprostol (Cytotec) 600 mcg PO ONETIME PRN PRN Reason: excessive vaginal bleeding Last Admin: 09/03/17 01:03 Dose: 600 mcg Prenat Multivit/[place]/Iron/Folic Ac ( Plus Iron) 1 each PO DAILY [facility] Last Admin: 09/04/17 14:30 Dose: Not Given Sertraline HCl (Zoloft) 25 mg PO BEDTIME [facility] Ray Murillo (Tucks) 1 pad TOP ASDIRECTED PRN PRN Reason: Hemorrhoid pain Discontinued Medications Acetaminophen (Tylenol) 650 mg PO Q6H PRN PRN Reason: Pain Albuterol (Proventil Neb Soln) Confirm Administered Dose 2.5 mg .ROUTE .STK-MED ONE Stop: 09/03/17 00:05 Last Admin: 09/03/17 00:11 Dose: 2.5 mg Bupivacaine HCl (Sensorcaine-Mpf 0.25%) 10 ml .ROUTE .STK-MED ONE Stop: 09/02/17 18:01 Carboprost Tromethamine (Hemabate Ds) Confirm Administered Dose 250 mcg .ROUTE .STK-MED ONE Stop: 09/02/17 23:18 Last Admin: 09/03/17 10:01 Dose: Not Given Diphenhydramine HCl (Benadryl) 25 mg IVPUSH Q6H PRN PRN Reason: pruritis Diphenoxylate HCl/Atropine (Lomotil 0.025-2.5 Mg) 1 tab PO ONETIME ONE Stop: 09/03/17 00:02 Last Admin: 09/03/17 10:01 Dose: Not Given Ephedrine Sulfate (Ephedrine Sulfate) 5 mg IVPUSH ASDIRECTED PRN PRN Reason: Hypotension Fentanyl (Sublimaze) 100 mcg EPIDUR Q3H PRN PRN Reason: Pain Last Admin: 09/02/17 19:04 Dose: 100 mcg Fentanyl/Bupivacaine HCl (Fentanyl/Bupivacaine/Ns 2 Mcg-0.125% 100 Ml) 100 ml EPIDUR ASDIRECTED [facility] Last Admin: 09/02/17 19:04 Dose: 100 ml Lactated Ringer's (Ringers, Lactated) 1,000 mls @ 100 mls/hr IV ASDIRECTED [facility] Last Admin: 09/02/17 21:33 Dose: 500 mls/hr Lactated Ringer's (Ringers, Lactated) 1,000 mls @ 40 mls/hr IV ASDIRECTED [facility] Oxytocin/Lactated Ringer's (Pitocin In Lr 10 Units/1,000 Ml) 10 unit in 1,000 mls @ 100 mls/hr IV .CONTINUOUS [facility] Oxytocin/Lactated Ringer's (Pitocin In Lr 10 Units/1,000 Ml) 10 unit in 1,000 mls @ 12 mls/hr IV TITRATE HEMANTH; Protocol Last Titration: 09/02/17 21:54 Dose: 5 munits/min, 30 mls/hr Labetalol HCl (Normodyne) 400 mg PO ONETIME ONE Stop: 09/04/17 01:55 Last Admin: 09/04/17 02:05 Dose: 400 mg Labetalol HCl (Normodyne) 200 mg PO Q12H [facility] Loperamide HCl (Imodium) 2 mg PO ONETIME ONE Stop: 09/03/17 00:31 Last Admin: 09/03/17 01:00 Dose: 2 mg Misoprostol (Cytotec) Confirm Administered Dose 200 mcg .ROUTE .STK-MED ONE Stop: 09/03/17 00:44 Last Admin: 09/03/17 09:58 Dose: Not Given Misoprostol (Cytotec) Confirm Administered Dose 200 mcg .ROUTE .STK-MED ONE Stop: 09/03/17 00:45 Last Admin: 09/03/17 09:58 Dose: Not Given Ondansetron HCl (Zofran) 4 mg IVPUSH Q4H PRN PRN Reason: Nausea/Vomiting Sertraline HCl (Zoloft) 25 mg PO DAILY [facility] Last Admin: 09/03/17 20:50 Dose: 25 mg Sodium Chloride (Saline Flush) 10 ml FLUSH ASDIRECTED PRN PRN Reason: Keep Vein Open
--- NOTE | 2017-09-04 14:32 | PCM.SN ---
- Free Text/Narrative Note: 1430 Patient has done well throughout the day. BP's normal to mild range. Otherwise feels well and strongly desires discharge home. Will discharge with Rx for 400 mg of labetalol BID. Will follow up this week with Dr. Urias or Dr. Haley for BP check in office. Aware of symptoms which should prompt return. Teresa Rae MD
[2017-09-04] MEDS ORDERED: Sertraline 25 MG Tab PO SCH (21:00)
== END 2017-09-04 17:30 | disposition home or self-care (01) | DRG 560 ==
LOC: JD.OB 14:15 → OBSVTOIN 23:05 → JD.OB 23:06
PROVIDERS: ADMIT Obstetrics & Gynecology; ATTEND Obstetrics & Gynecology
PROC: 10E0XZZ Delivery of Products of Conception, External Approach (ICD-10-PCS; principal; 2017-09-02)
PROC: 3E033VJ Introduction of Other Hormone into Peripheral Vein, Percutaneous Approach (ICD-10-PCS; 2017-09-02)
PROC: 10907ZC Drainage of Amniotic Fluid, Therapeutic from Products of Conception, Via Natural or Artificial Opening (ICD-10-PCS; 2017-09-02)
PROC: 0UC97ZZ Extirpation of Matter from Uterus, Via Natural or Artificial Opening (ICD-10-PCS; 2017-09-02)
PROC: 00HU33Z Insertion of Infusion Device into Spinal Canal, Percutaneous Approach (ICD-10-PCS; 2017-09-02)
PROC: 3E0R3BZ Introduction of Anesthetic Agent into Spinal Canal, Percutaneous Approach (ICD-10-PCS; 2017-09-02)
DX: O13.4 Gestational [pregnancy-induced] hypertension without significant proteinuria, complicating childbirth (principal); O99.344 Other mental disorders complicating childbirth; F32.9 Major depressive disorder, single episode, unspecified; Z3A.39 39 weeks gestation of pregnancy; Z37.0 Single live birth; F41.9 Anxiety disorder, unspecified; O72.1 Other immediate postpartum hemorrhage; O24.420 Gestational diabetes mellitus in childbirth, diet controlled; O69.81X0 Labor and delivery complicated by cord around neck, without compression, not applicable or unspecified; Z87.891 Personal history of nicotine dependence
CPT/HCPCS: 36415; 51701; 51702; 59025; 59409; 80053; 82565; 82570; 82962; 84156; 84450; 84460; 85025; 94640; A9270-GY; J2590; J3010; J7120

== ENCOUNTER 2018-01-08 12:32 | Emergency (ER) | payer BC, MEDICAID ==
[2018-01-08] MEDS ORDERED: Sodium Chloride 0.9% 10 ML Syringe FLUSH PRN (13:29)
[2018-01-08] MEDS ORDERED: Ondansetron 4 MG/2 ML SDV IVPUSH ONE (13:30)
[2018-01-08] MEDS ORDERED: Sodium Chloride 0.9% 1,000 ML IV ONE ×2 (13:31)
--- NOTE | 2018-01-08 13:38 | EDM.PDOC ---
ED HPI GENERAL MEDICAL PROBLEM - General Chief Complaint: Gastrointestinal Problem Stated Complaint: DEHYDRATED Time Seen by Provider: 01/08/18 13:07 Source of Information: Reports: Patient History Limitations: Reports: No Limitations - History of Present Illness INITIAL COMMENTS - FREE TEXT/NARRATIVE: Patient is a 27-year-old female who presents to the ED with a 3 day history of diarrhea and vomiting. She states 3 days ago she had multiple episodes of diarrhea described as low volume with multiple occurrences. No blood present. She had one episode Vomiting with onset. she had no vomiting but the diarrhea persisted. Yesterday she was feeling better. Decided to consume alcohol last night. Vomited times one secondary to alcohol consumption. This morning diarrhea persists. No blood present. Feels dehydrated, weak, and fatigue. She has not been able to eat much. Denies any recent sick exposure. States every time she eats goes right through her. She has some discomfort to her lower abdomen describes a crampy sensation. Last menstrual cycle was unknown. States she could be . She was on control but missed a few days. States she just gave to a child 4 months ago. She is not breast- feeding. Patient denies any fever, chills, abnormal vaginal discharge, painful urination, back pain, chest pain, sob, or any additional complaints. She carries a history depression and is on Zoloft. No surgical history. Alcohol use rarely. Smokes one pack every 3 days. Denies any recreational drug use. PCP is Dr. Kearns. 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 ED EXAM, GI/ABD - Physical Exam Exam: See Below Exam Limited By: No Limitations General Appearance: Alert, WD/WN, No Apparent Distress Eyes: Bilateral: Normal Appearance Ears: Hearing Grossly Normal Nose: Normal Inspection Throat/Mouth: Normal Voice, No Airway Compromise, Other (Dry mouth.) Neck: Normal Inspection, Supple Respiratory/Chest: No Respiratory Distress, Lungs Clear, Normal Breath Sounds, No Accessory Muscle Use, Chest Non-Tender Cardiovascular: Normal Peripheral Pulses, Regular Rate, Rhythm, No Murmur GI/Abdominal Exam: Normal Bowel Sounds, Soft, No Organomegaly, No Distention Back Exam: Normal Inspection Extremities: Normal Inspection, Normal Range of Motion, Non-Tender, No Pedal Edema, Normal Capillary Refill Neurological: Alert, Oriented, CN II-XII Intact, Normal Cognition, No Motor/ Sensory Deficits Psychiatric: Normal Affect, Normal Mood Skin Exam: Warm, Dry, Intact, Normal Color Course - Vital Signs Last Recorded V/S: Last Vital Signs Temp 98.2 F 01/08/18 15:45 Pulse 82 01/08/18 16:00 Resp 16 01/08/18 16:00 BP 120/77 01/08/18 16:00 Pulse Ox 99 01/08/18 16:00 Orthostatic Blood Pressure [ 123/82 Standing] Orthostatic Blood Pressure [ 125/86 Sitting] Orthostatic Blood Pressure [ 118/72 Supine] - Orders/Labs/Meds Orders: Active Orders 24 hr Category Date Time Status Orthostatic Vital Signs [RC] ASDIRECTED Care 01/08/18 13:29 Active Peripheral IV Care [RC] . DIRECTED Care 01/08/18 13:30 Active WBC, STOOL [OP] Stat Lab 01/08/18 13:31 Ordered Peripheral IV Insertion Adult [OM.PC] Stat Oth 01/08/18 13:29 Ordered Labs: Laboratory Tests 09/22/18 09/22/18 09/22/18 Range/Units 15:09 15:09 15:09 WBC 11.25 H (3.98-10.04) K/mm3 RBC 5.24 H (3.98-5.22) M/mm3 Hgb 13.5 (11.2-15.7) gm/L Hct 43.5 (34.1-44.9) % MCV 83.0 (79.4-94.8) fl MCH 25.8 (25.6-32.2) pg MCHC 31.0 L (32.2-35.5) g/dl RDW Std Deviation 50.2 H (36.4-46.3) fL Plt Count 340 (182-369) K/mm3 MPV 10.3 (9.4-12.3) fl Neut % (Auto) 61.3 (34.0-71.1) % Lymph % (Auto) 25.3 (19.3-51.7) % [place] % (Auto) 9.1 (4.7-12.5) % Eos % (Auto) 3.4 (0.7-5.8) Baso % (Auto) 0.6 (0.1-1.2) % Neut # (Auto) 6.90 H (1.56-6.13) K/mm3 Lymph # (Auto) 2.85 (1.18-3.74) K/mm3 [place] # (Auto) 1.02 H (0.24-0.36) K/mm3 Eos # (Auto) 0.38 H (0.04-0.36) K/mm3 Baso # (Auto) 0.07 (0.01-0.08) K/mm3 Sodium 140 (136-145) mEq/L Potassium 4.1 (3.5-5.1) mEq/L Chloride 105 (98-107) mEq/L Carbon Dioxide 27 (21-32) mEq/L Anion Gap 12.1 (5-15) BUN 10 (7-18) mg/dL Creatinine 1.0 (0.55-1.02) mg/dL Est Cr Clr Drug Dosing 74.26 mL/min Estimated GFR (MDRD) > 60 (>60) mL/min BUN/Creatinine Ratio 10.0 L (14-18) Glucose 81 (74-106) mg/dL Calcium 8.8 (8.5-10.1) mg/dL Magnesium 1.8 (1.8-2.4) mg/dl Total Bilirubin 0.1 L (0.2-1.0) mg/dL AST 24 (15-37) U/L ALT 34 (14-59) U/L Alkaline Phosphatase 96 (46-116) U/L Total Protein 7.8 (6.4-8.2) g/dl Albumin 3.9 (3.4-5.0) g/dl Globulin 3.9 gm/dL Albumin/Globulin Ratio 1.0 (1-2) HCG, Qual Negative (NEGATIVE) Urine Color (Yellow) Urine Appearance (Clear) Urine pH (5.0-8.0) Ur Specific [place] (1.005-1.030) Urine Protein (Negative) Urine Glucose (UA) (Negative) Urine Ketones (Negative) Urine Occult Blood (Negative) Urine Nitrite (Negative) Urine Bilirubin (Negative) Urine Urobilinogen (0.2-1.0) Ur Leukocyte Esterase (Negative) Urine RBC (0-5) /hpf Urine WBC (0-5) /hpf Ur Epithelial Cells (0-5) /hpf Urine Bacteria (FEW) /hpf Urine Mucus (FEW) /hpf Urine Opiates Screen (NEGATIVE) Ur Buprenorphine Scrn (NEGATIVE) Ur Oxycodone Screen (NEGATIVE) Urine Methadone Screen (NEGATIVE) Ur Propoxyphene Screen (NEGATIVE) Ur Barbiturates Screen (NEGATIVE) Ur Tricyclics Screen (NEGATIVE) Ur Phencyclidine Scrn (NEGATIVE) Ur Amphetamine Screen (NEGATIVE) U Methamphetamines Scrn (NEGATIVE) U Benzodiazepines Scrn (NEGATIVE) U Cocaine Metab Screen (NEGATIVE) U Marijuana (THC) Screen (NEGATIVE) Ethyl Alcohol 0.00 (0.00) gm% 01/08/18 01/08/18 Range/Units 17:00 17:00 WBC (3.98-10.04) K/mm3 RBC (3.98-5.22) M/mm3 Hgb (11.2-15.7) gm/L Hct (34.1-44.9) % MCV (79.4-94.8) fl MCH (25.6-32.2) pg MCHC (32.2-35.5) g/dl RDW Std Deviation (36.4-46.3) fL Plt Count (182-369) K/mm3 MPV (9.4-12.3) fl Neut % (Auto) (34.0-71.1) % Lymph % (Auto) (19.3-51.7) % [place] % (Auto) (4.7-12.5) % Eos % (Auto) (0.7-5.8) Baso % (Auto) (0.1-1.2) % Neut # (Auto) (1.56-6.13) K/mm3 Lymph # (Auto) (1.18-3.74) K/mm3 [place] # (Auto) (0.24-0.36) K/mm3 Eos # (Auto) (0.04-0.36) K/mm3 Baso # (Auto) (0.01-0.08) K/mm3 Sodium (136-145) mEq/L Potassium (3.5-5.1) mEq/L Chloride (98-107) mEq/L Carbon Dioxide (21-32) mEq/L Anion Gap (5-15) BUN (7-18) mg/dL Creatinine (0.55-1.02) mg/dL Est Cr Clr Drug Dosing mL/min Estimated GFR (MDRD) (>60) mL/min BUN/Creatinine Ratio (14-18) Glucose (74-106) mg/dL Calcium (8.5-10.1) mg/dL Magnesium (1.8-2.4) mg/dl Total Bilirubin (0.2-1.0) mg/dL AST (15-37) U/L ALT (14-59) U/L Alkaline Phosphatase (46-116) U/L Total Protein (6.4-8.2) g/dl Albumin (3.4-5.0) g/dl Globulin gm/dL Albumin/Globulin Ratio (1-2) HCG, Qual (NEGATIVE) Urine Color Yellow (Yellow) Urine Appearance Clear (Clear) Urine pH 7.0 (5.0-8.0) Ur Specific [place] 1.020 (1.005-1.030) Urine Protein Negative (Negative) Urine Glucose (UA) Negative (Negative) Urine Ketones Negative (Negative) Urine Occult Blood Negative (Negative) Urine Nitrite Negative (Negative) Urine Bilirubin Negative (Negative) Urine Urobilinogen 0.2 (0.2-1.0) Ur Leukocyte Esterase Negative (Negative) Urine RBC Not seen (0-5) /hpf Urine WBC 0-5 (0-5) /hpf Ur Epithelial Cells 5-10 H (0-5) /hpf Urine Bacteria Not seen (FEW) /hpf Urine Mucus Not seen (FEW) /hpf Urine Opiates Screen Negative (NEGATIVE) Ur Buprenorphine Scrn Negative (NEGATIVE) Ur Oxycodone Screen Negative (NEGATIVE) Urine Methadone Screen Negative (NEGATIVE) Ur Propoxyphene Screen Negative (NEGATIVE) Ur Barbiturates Screen Negative (NEGATIVE) Ur Tricyclics Screen Negative (NEGATIVE) Ur Phencyclidine Scrn Negative (NEGATIVE) Ur Amphetamine Screen Negative (NEGATIVE) U Methamphetamines Scrn Negative (NEGATIVE) U Benzodiazepines Scrn Negative (NEGATIVE) U Cocaine Metab Screen Negative (NEGATIVE) U Marijuana (THC) Screen Negative (NEGATIVE) Ethyl Alcohol (0.00) gm% Meds: Medications Discontinued Medications Generic Name Dose Route Start Last Admin Trade Name Freq PRN Reason Stop Dose Admin Sodium Chloride 1,000 mls @ 999 mls/hr 01/08/18 13:31 01/08/18 15:15 Normal Saline IV 01/08/18 14:31 999 mls/hr ONETIME ONE Administration Sodium Chloride 1,000 mls @ 999 mls/hr 01/08/18 13:31 01/08/18 16:15 Normal Saline IV 01/08/18 14:31 999 mls/hr .BOLUS ONE Administration Ondansetron HCl 4 mg 01/08/18 13:30 01/08/18 15:09 Zofran IVPUSH 01/08/18 13:31 4 mg ONETIME ONE Administration Sodium Chloride 10 ml 01/08/18 13:29 01/08/18 15:17 Saline Flush FLUSH 10 ml ASDIRECTED PRN Administration Keep Vein Open - Re-Assessments/Exams Free Text/Narrative Re-Assessment/Exam: IV established Zofran and 2 L IV fluid bolus. Initial labs and studies will include: CBC, chem 14, magnesium, UA, serum EtOH, stool wbc's, urine drug screen, and orthostatic vital signs. Labs reviewed: White blood cell count 11.25, hemoglobin 13.5, platelet count 340 , sodium 140, potassium 4.1, cr 1.0, glucose 81, and hCG negative. Reassessment, patient states symptoms have drastically improved with the above therapies. She has not provided a UA sample yet. UA was collected but has not resulted yet. UA came back negative for infection. Urine drug tox negative. Serum EtOH 0.00. Patient continues states symptoms have drastically improved. She is ready to be discharged home. Discharge instructions as documented.The patient remained hemodynamically stable while under my care in the E.D. I discussed the concerning symptoms for which to return to the E.D. with the patient. The patient verbalized understanding. All questions were answered. Departure - Departure Time of Disposition: 18:16 Disposition: Home, Self-Care 01 Condition: Good Clinical Impression: Gastroenteritis Nausea and vomiting Qualifiers: Vomiting type: unspecified Vomiting Intractability: non-intractable Qualified Code(s): R11.2 - Nausea with vomiting, unspecified Diarrhea Qualifiers: Diarrhea type: unspecified type Qualified Code(s): R19.7 - Diarrhea, unspecified - Discharge Information *PRESCRIPTION DRUG MONITORING PROGRAM REVIEWED*: Not Applicable *COPY OF PRESCRIPTION DRUG MONITORING REPORT IN PATIENT BHAVIN: Not Applicable Prescriptions: Ondansetron [Zofran ODT] 4 mg PO Q6H PRN #12 tab.dis PRN Reason: Nausea/Vomiting Instructions: Diarrhea, Adult, Viral Gastroenteritis, Adult, Nausea and Vomiting, Adult Referrals: Irma Kearns MD [Primary Care Provider] - Forms: ED Department Discharge Additional Instructions: Take the zofran as prescribed for n/v. Push the fluids including: gatorade, powerade, and or pedialyte. Stick with a bland diet this evening refraining from alcohol. Advance diet as tolerated. Followup with PCP in the next few days as needed. Return to the E.D. if you develop any new or worsening symptoms. - My Orders Last 24 Hours: My Active Orders 01/08/18 13:29 Orthostatic Vital Signs [RC] ASDIRECTED Peripheral IV Insertion Adult [OM.PC] Stat 01/08/18 13:30 Peripheral IV Care [RC] . DIRECTED 01/08/18 13:31 WBC, STOOL [OP] Stat - Assessment/Plan Last 24 Hours: My Active Orders 01/08/18 13:29 Orthostatic Vital Signs [RC] ASDIRECTED Peripheral IV Insertion Adult [OM.PC] Stat 01/08/18 13:30 Peripheral IV Care [RC] . DIRECTED 01/08/18 13:31 WBC, STOOL [OP] Stat
== END 2018-01-08 18:40 | disposition home or self-care (01) ==
LOC: JD.ED 12:32
DX: K52.9 Noninfective gastroenteritis and colitis, unspecified (principal); I10 Essential (primary) hypertension; F17.210 Nicotine dependence, cigarettes, uncomplicated
CPT/HCPCS: 36415; 80053; 80306; 81001; 83735; 84703; 85025; 96361; 96374; 99284; G0480; J2405; J7040; J7050

== ENCOUNTER 2018-10-17 13:55 | Inpatient (IN) | payer BC, MEDICAID ==
[2018-10-17] MEDS ORDERED: Acetaminophen/Butalbital/Caffeine 325-50-40 MG Tab PO ONE (14:56)
--- NOTE | 2018-10-17 15:00 | PCM.SN ---
- Free Text/Narrative Note: Evaluation Note OB Physician: Dr. Haley HPI: Jose Carlos Talavera is a 27-year-old 012 at 38 weeks 3 days ([facility] 10/28/2018) who presents from clinic after having elevated blood pressures into the 140s to 150s /70s to 80s. Patient reports that she has been having headache that has not been resolved with Tylenol. She denies any scotomata or spots in her vision. Reports that she had one episode of wavy lines in her vision last week. Denies any epigastric pain. She reports that she does have Paco Chakraborty contractions throughout the day but that they are irregular. She denies any leaking of fluid or vaginal bleeding. Her care has been with Dr. Haley and is complicated by: * Anxiety and depression currently on Zoloft 50 mg daily and this working well for her. * History of gestational hypertension with normal blood pressures throughout the until today's appointment. * History of gestational diabetes with normal 1 hour glucose test in this . Vitals: Time: 14:45 15:00 15:15 15:30 15:45 16:00 16:15 BP: 136/84 128/77 131/83 139/80 151/84 146/86 149/96 HR: 104 103 Physical Examination: General: No acute distress, alert and oriented Lungs: Clear to auscultation bilaterally Heart: Regular rate and rhythm Abdomen: Soft, nontender, nondistended, gravid Pelvis: Normal appearing external genitalia, no lesions noted Extremities: No edema noted in bilateral lower extremities Cervical exam: 3/70/-2/soft/anterior in clinic at 1:45 PM ---> 3/70/-2/soft/ anterior at 5 PM FHT: 140s, moderate variability, positive 15x15 accelerations, no decelerations [place]: Irregular contractions Labs: Laboratory Tests 10/17/18 10/17/18 10/17/18 Range/Units 14:14 14:14 14:35 WBC 11.77 H (3.98-10.04) K/mm3 RBC 4.29 (3.98-5.22) M/mm3 Hgb 10.3 L (11.2-15.7) gm/L Hct 33.1 L (34.1-44.9) % MCV 77.2 L D (79.4-94.8) fl MCH 24.0 L (25.6-32.2) pg MCHC 31.1 L (32.2-35.5) g/dl RDW Std Deviation 45.1 (36.4-46.3) fL Plt Count 307 (182-369) K/mm3 MPV 10.3 (9.4-12.3) fl Neut % (Auto) 75.9 H (34.0-71.1) % Lymph % (Auto) 15.8 L (19.3-51.7) % [place] % (Auto) 5.4 (4.7-12.5) % Eos % (Auto) 2.4 (0.7-5.8) Baso % (Auto) 0.3 (0.1-1.2) % Neut # (Auto) 8.95 H (1.56-6.13) K/mm3 Lymph # (Auto) 1.86 (1.18-3.74) K/mm3 [place] # (Auto) 0.63 H (0.24-0.36) K/mm3 Eos # (Auto) 0.28 (0.04-0.36) K/mm3 Baso # (Auto) 0.03 (0.01-0.08) K/mm3 Sodium 138 (136-145) mEq/L Potassium 4.0 (3.5-5.1) mEq/L Chloride 104 (98-107) mEq/L Carbon Dioxide 20 L (21-32) mEq/L Anion Gap 18.0 H (5-15) BUN 7 (7-18) mg/dL Creatinine 0.7 (0.55-1.02) mg/dL Est Cr Clr Drug Dosing 115.01 mL/min Estimated GFR (MDRD) > 60 (>60) mL/min BUN/Creatinine Ratio 10.0 L (14-18) Glucose 106 (74-106) mg/dL Calcium 8.9 (8.5-10.1) mg/dL Total Bilirubin 0.3 (0.2-1.0) mg/dL AST 20 (15-37) U/L ALT 15 (14-59) U/L Alkaline Phosphatase 116 (46-116) U/L Total Protein 6.6 (6.4-8.2) g/dl Albumin 2.7 L (3.4-5.0) g/dl Globulin 3.9 gm/dL Albumin/Globulin Ratio 0.7 L (1-2) Urine Color Yellow (Yellow) Urine Appearance Clear (Clear) Urine pH 7.0 (5.0-8.0) Ur Specific [place] 1.025 (1.005-1.030) Urine Protein Trace H (Negative) Urine Glucose (UA) Negative (Negative) Urine Ketones Negative (Negative) Urine Occult Blood Negative (Negative) Urine Nitrite Negative (Negative) Urine Bilirubin Negative (Negative) Urine Urobilinogen 1.0 (0.2-1.0) Ur Leukocyte Esterase Negative (Negative) Urine RBC 0-5 (0-5) /hpf Urine WBC 0-5 (0-5) /hpf Ur Squamous Epith Cells 0-5 (0-5) /hpf Urine Bacteria Rare (FEW) /hpf Urine Mucus Few (FEW) /hpf Ur Random Creatinine (30.0-125.0) mg/dL U Random Total Protein (0.0-11.8) mg/dL Protein/Creatinin Ratio (0-149) mg/g 10/17/18 Range/Units 14:35 WBC (3.98-10.04) K/mm3 RBC (3.98-5.22) M/mm3 Hgb (11.2-15.7) gm/L Hct (34.1-44.9) % MCV (79.4-94.8) fl MCH (25.6-32.2) pg MCHC (32.2-35.5) g/dl RDW Std Deviation (36.4-46.3) fL Plt Count (182-369) K/mm3 MPV (9.4-12.3) fl Neut % (Auto) (34.0-71.1) % Lymph % (Auto) (19.3-51.7) % [place] % (Auto) (4.7-12.5) % Eos % (Auto) (0.7-5.8) Baso % (Auto) (0.1-1.2) % Neut # (Auto) (1.56-6.13) K/mm3 Lymph # (Auto) (1.18-3.74) K/mm3 [place] # (Auto) (0.24-0.36) K/mm3 Eos # (Auto) (0.04-0.36) K/mm3 Baso # (Auto) (0.01-0.08) K/mm3 Sodium (136-145) mEq/L Potassium (3.5-5.1) mEq/L Chloride (98-107) mEq/L Carbon Dioxide (21-32) mEq/L Anion Gap (5-15) BUN (7-18) mg/dL Creatinine (0.55-1.02) mg/dL Est Cr Clr Drug Dosing mL/min Estimated GFR (MDRD) (>60) mL/min BUN/Creatinine Ratio (14-18) Glucose (74-106) mg/dL Calcium (8.5-10.1) mg/dL Total Bilirubin (0.2-1.0) mg/dL AST (15-37) U/L ALT (14-59) U/L Alkaline Phosphatase (46-116) U/L Total Protein (6.4-8.2) g/dl Albumin (3.4-5.0) g/dl Globulin gm/dL Albumin/Globulin Ratio (1-2) Urine Color (Yellow) Urine Appearance (Clear) Urine pH (5.0-8.0) Ur Specific [place] (1.005-1.030) Urine Protein (Negative) Urine Glucose (UA) (Negative) Urine Ketones (Negative) Urine Occult Blood (Negative) Urine Nitrite (Negative) Urine Bilirubin (Negative) Urine Urobilinogen (0.2-1.0) Ur Leukocyte Esterase (Negative) Urine RBC (0-5) /hpf Urine WBC (0-5) /hpf Ur Squamous Epith Cells (0-5) /hpf Urine Bacteria (FEW) /hpf Urine Mucus (FEW) /hpf Ur Random Creatinine 128.8 H (30.0-125.0) mg/dL U Random Total Protein 16.6 H (0.0-11.8) mg/dL Protein/Creatinin Ratio 128.9 (0-149) mg/g Interventions: None Assessment and Plan: Jose Carlos Talavera is a 27-year-old 012 at 38 weeks 3 days with gestational hypertension * Plan induction. Please see H&P for full details. Lorenzo Haley MD 5:17 PM 10/17/2018
[2018-10-17] MEDS ORDERED: Nalbuphine 10 MG/1 ML Vial IVPUSH PRN (16:33)
[2018-10-17] MEDS ORDERED: Sodium Chloride 0.9% 10 ML Syringe FLUSH PRN (16:33)
[2018-10-17] MEDS ORDERED: Ondansetron 4 MG/2 ML SDV IVPUSH PRN (16:33)
[2018-10-17] MEDS ORDERED: Oxytocin/Lactated Ringers 10 UNIT/1,000 ML BAG IV SCH ×2 (16:45)
[2018-10-17] MEDS: Lactated Ringers 1,000 ML IV SCH ×2 (17:20→20:43)
--- NOTE | 2018-10-17 17:25 | PCM.LDHP ---
L&D History of Present Illness - General Date of Service: 10/17/18 Admit Problem/Dx: Patient Status Order with Admit Dx/Problem 10/17/18 14:00 Patient Status [ADT] Routine 10/17/18 16:34 Patient Status [ADT] Routine Admission Diagnosis/Problem Admission Diagnosis/Problem Source of Information: Patient History Limitations: Reports: No Limitations - History of Present Illness Introduction:: Jose Carlos Talavera is a 27-year-old 012 at 38 weeks 3 days by LMP consistent with 6 week ultrasound who was sent down from the clinic for extended monitoring in the setting of elevated blood pressures in the clinic. She had blood pressures that were in the 140s to 150s/70s to 80s. She was not having any signs of preeclampsia such as a headache, scotomata, vision changes or epigastric pain. She was having irregular contractions per her report with Abrams Chakraborty contractions throughout the day. She was reporting good movement. While she was evaluated on labor and delivery she continued to have mild range elevations of her blood pressures and was felt to have gestational hypertension. Decision was made to proceed with induction of labor in the setting of gestational hypertension. No evidence of preeclampsia on her labs or by symptoms. Present Illness Comments:: Jose Carlos Talavera is a 27-year-old 012 at 38 weeks 3 days ([facility] 10/28/2018) who presented for evaluation for elevated blood pressures from the clinic and was found to have gestational hypertension. She has had routine care with myself starting at 6 weeks gestational age but did moved to [place] during the for several months and then returned to [place]. She received her TDaP vaccine at around 28 weeks gestational age when she was in [place]. Her was overall uncomplicated. Her is complicated by: * Gestational hypertension at 38 weeks gestational age * History of gestational hypertension in previous * History of gestational diabetes in previous * Anxiety and depression on Zoloft 50 mg daily working well for her * Eczema labs Blood type: O+ Antibody screen: Negative Urine culture: Negative Rubella status: Immune Early 1 hour glucose tolerance test: 91 on 04/05/2018 Hepatitis B surface antigen: Negative RPR: Negative HIV: Negative Gonorrhea: Negative Chlamydia: Negative Anatomy ultrasound: Normal anatomy ultrasound without abnormalities that were seen. Spine not well visualized. Posterior placenta. 64th percentile at 19 weeks gestational age. Repeat ultrasound per her report was normal and did not show any abnormalities spine. One hour glucose tolerance test: 116 Second trimester hematocrit/hemoglobin: 35.4%/11.2 on 08/15/2018 Platelets: 286 GBS status: Negative - Related Data Allergies/Adverse Reactions: Allergies Allergy/AdvReac Type Severity Reaction Status Date / Time No Known Allergies Allergy Verified 09/02/17 15:09 Home Medications: Home Meds Sertraline [Zoloft] 50 mg PO DAILY #60 tablet 09/03/17 [Rx] Ibuprofen [Motrin] 600 mg PO Q6H PRN tablet 09/04/17 [Rx] Ondansetron [Zofran ODT] 4 mg PO Q6H PRN #12 tab.dis 01/08/18 [Rx] Past Medical History Cardiovascular History: Reports: Hypertension Respiratory History: Reports: None Gastrointestinal History: Reports: None 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 GRADER History: Reports: : 4 Para: 2 Psychiatric History: Reports: Anxiety, Depression Endocrine/Metabolic History: Reports: Diabetes, Gestational - Past Surgical History HEENT Surgical History: Reports: Tonsillectomy GI Surgical History: Reports: Colonoscopy, EGD - History Comment History Comment: vits Social & Family History - Tobacco Use Smoking Status *Q: Former Smoker - Tobacco Core Measures Tobacco Use/Smoking Within Last 30 Days: No Smokeless Tobacco Use in Last 30 Days: No - Caffeine Use Caffeine Use: Reports: Coffee - Alcohol Use Alcohol Use History: No - Recreational Drug Use Recreational Drug Use: No Drug Use in Last 12 Months: No - Living Situation & Occupation Living situation: Reports: Single, with Significant Other H&P Review of Systems - Review of Systems: Review Of Systems: See Below General: Denies: Fever, Chills, Malaise, Weakness, Fatigue HEENT: Reports: Sinus Congestion. Denies: Headaches, Post Nasal Drip, Sore Throat, Visual Changes Pulmonary: Denies: Shortness of Breath, Wheezing, Pleuritic Chest Pain, Cough Cardiovascular: Denies: Chest Pain, Palpitations, Dyspnea on Exertion, Orthopnea Gastrointestinal: Denies: Abdominal Pain, Constipation, Diarrhea, Nausea, Vomiting Genitourinary: Denies: Dysuria, Frequency, Burning, Pain, Urgency Musculoskeletal: Denies: Back Pain Skin: Reports: Rash (Reports small eczema rashes on her arms). Denies: Lesions Psychiatric: Denies: Depression (No acute depression symptoms at this time), Anxiety Neurological: Denies: Headache L&D Exam - Exam Exam: See Below - Vital Signs Vital Signs: Last Vital Signs Temp 36.8 C 10/17/18 14:45 Pulse 104 H 10/17/18 14:45 Resp 16 10/17/18 14:45 BP 128/77 10/17/18 14:45 Pulse Ox 98 10/17/18 14:45 Weight: 103.419 kg - OB Specific Contraction Intensity: Irregular Movement: Active Heart Tones: Present Heart Tones per Min: 140 (+15 x 15 accelerations, no decelerations) Heart Rate (FHR) Variability: Moderate (6-25 bmp) Presentation: Vertex Estimated Weight: 7.5-8 pounds by [employer] - Muñoz Score Muñoz Score Cervix Position: Anterior Muñoz Score Consistency: Soft Muñoz Score Effacement: 51-70% (70%) Muñoz Score Dilation: 3-4 cm (3 cm) Muñoz Score 's Station: -2 Muñoz Score Total: 9 - Exam General: Alert, Oriented HEENT: Conjunctiva Clear, EOMI Neck: Supple, Trachea Midline Lungs: Clear to Auscultation, Normal Respiratory Effort Cardiovascular: Regular Rate, Regular Rhythm GI/Abdominal Exam: Soft, No Distention. No: Guarding, Rigid, Rebound Genitourinary: Normal external exam, Other (Artificial rupture of membranes with Amnihook with return of small amount of clear fluid.) Extremities: No Pedal Edema Skin: Warm, Dry, Intact Psychiatric: Alert, Normal Affect, Normal Mood - Patient Data Lab Results Last 24 hrs: Laboratory Results - last 24 hr 10/17/18 10/17/18 10/17/18 Range/Units 14:14 14:14 14:35 WBC 11.77 H (3.98-10.04) K/mm3 RBC 4.29 (3.98-5.22) M/mm3 Hgb 10.3 L (11.2-15.7) gm/L Hct 33.1 L (34.1-44.9) % MCV 77.2 L D (79.4-94.8) fl MCH 24.0 L (25.6-32.2) pg MCHC 31.1 L (32.2-35.5) g/dl RDW Std Deviation 45.1 (36.4-46.3) fL Plt Count 307 (182-369) K/mm3 MPV 10.3 (9.4-12.3) fl Neut % (Auto) 75.9 H (34.0-71.1) % Lymph % (Auto) 15.8 L (19.3-51.7) % [place] % (Auto) 5.4 (4.7-12.5) % Eos % (Auto) 2.4 (0.7-5.8) Baso % (Auto) 0.3 (0.1-1.2) % Neut # (Auto) 8.95 H (1.56-6.13) K/mm3 Lymph # (Auto) 1.86 (1.18-3.74) K/mm3 [place] # (Auto) 0.63 H (0.24-0.36) K/mm3 Eos # (Auto) 0.28 (0.04-0.36) K/mm3 Baso # (Auto) 0.03 (0.01-0.08) K/mm3 Sodium 138 (136-145) mEq/L Potassium 4.0 (3.5-5.1) mEq/L Chloride 104 (98-107) mEq/L Carbon Dioxide 20 L (21-32) mEq/L Anion Gap 18.0 H (5-15) BUN 7 (7-18) mg/dL Creatinine 0.7 (0.55-1.02) mg/dL Est Cr Clr Drug Dosing 115.01 mL/min Estimated GFR (MDRD) > 60 (>60) mL/min BUN/Creatinine Ratio 10.0 L (14-18) Glucose 106 (74-106) mg/dL Calcium 8.9 (8.5-10.1) mg/dL Total Bilirubin 0.3 (0.2-1.0) mg/dL AST 20 (15-37) U/L ALT 15 (14-59) U/L Alkaline Phosphatase 116 (46-116) U/L Total Protein 6.6 (6.4-8.2) g/dl Albumin 2.7 L (3.4-5.0) g/dl Globulin 3.9 gm/dL Albumin/Globulin Ratio 0.7 L (1-2) Urine Color Yellow (Yellow) Urine Appearance Clear (Clear) Urine pH 7.0 (5.0-8.0) Ur Specific [place] 1.025 (1.005-1.030) Urine Protein Trace H (Negative) Urine Glucose (UA) Negative (Negative) Urine Ketones Negative (Negative) Urine Occult Blood Negative (Negative) Urine Nitrite Negative (Negative) Urine Bilirubin Negative (Negative) Urine Urobilinogen 1.0 (0.2-1.0) Ur Leukocyte Esterase Negative (Negative) Urine RBC 0-5 (0-5) /hpf Urine WBC 0-5 (0-5) /hpf Ur Squamous Epith Cells 0-5 (0-5) /hpf Urine Bacteria Rare (FEW) /hpf Urine Mucus Few (FEW) /hpf Ur Random Creatinine (30.0-125.0) mg/dL U Random Total Protein (0.0-11.8) mg/dL Protein/Creatinin Ratio (0-149) mg/g 10/17/18 Range/Units 14:35 WBC (3.98-10.04) K/mm3 RBC (3.98-5.22) M/mm3 Hgb (11.2-15.7) gm/L Hct (34.1-44.9) % MCV (79.4-94.8) fl MCH (25.6-32.2) pg MCHC (32.2-35.5) g/dl RDW Std Deviation (36.4-46.3) fL Plt Count (182-369) K/mm3 MPV (9.4-12.3) fl Neut % (Auto) (34.0-71.1) % Lymph % (Auto) (19.3-51.7) % [place] % (Auto) (4.7-12.5) % Eos % (Auto) (0.7-5.8) Baso % (Auto) (0.1-1.2) % Neut # (Auto) (1.56-6.13) K/mm3 Lymph # (Auto) (1.18-3.74) K/mm3 [place] # (Auto) (0.24-0.36) K/mm3 Eos # (Auto) (0.04-0.36) K/mm3 Baso # (Auto) (0.01-0.08) K/mm3 Sodium (136-145) mEq/L Potassium (3.5-5.1) mEq/L Chloride (98-107) mEq/L Carbon Dioxide (21-32) mEq/L Anion Gap (5-15) BUN (7-18) mg/dL Creatinine (0.55-1.02) mg/dL Est Cr Clr Drug Dosing mL/min Estimated GFR (MDRD) (>60) mL/min BUN/Creatinine Ratio (14-18) Glucose (74-106) mg/dL Calcium (8.5-10.1) mg/dL Total Bilirubin (0.2-1.0) mg/dL AST (15-37) U/L ALT (14-59) U/L Alkaline Phosphatase (46-116) U/L Total Protein (6.4-8.2) g/dl Albumin (3.4-5.0) g/dl Globulin gm/dL Albumin/Globulin Ratio (1-2) Urine Color (Yellow) Urine Appearance (Clear) Urine pH (5.0-8.0) Ur Specific [place] (1.005-1.030) Urine Protein (Negative) Urine Glucose (UA) (Negative) Urine Ketones (Negative) Urine Occult Blood (Negative) Urine Nitrite (Negative) Urine Bilirubin (Negative) Urine Urobilinogen (0.2-1.0) Ur Leukocyte Esterase (Negative) Urine RBC (0-5) /hpf Urine WBC (0-5) /hpf Ur Squamous Epith Cells (0-5) /hpf Urine Bacteria (FEW) /hpf Urine Mucus (FEW) /hpf Ur Random Creatinine 128.8 H (30.0-125.0) mg/dL U Random Total Protein 16.6 H (0.0-11.8) mg/dL Protein/Creatinin Ratio 128.9 (0-149) mg/g Result Diagrams: 10/17/18 14:14 10/17/18 14:14 - Problem List (1) 38 weeks gestation of SNOMED Code(s): 35191262 ICD Code: Z3A.38 - 38 WEEKS GESTATION OF Status: Acute Current Visit: Yes (2) History of gestational hypertension SNOMED Code(s): 494397396 ICD Code: Z87.59 - PERSONAL HISTORY OF COMP OF PREG, CHLDBRTH AND THE PUERP Status: Acute Current Visit: Yes (3) History of gestational diabetes SNOMED Code(s): 317693254 ICD Code: Z86.32 - PERSONAL HISTORY OF GESTATIONAL DIABETES Status: Acute Current Visit: Yes (4) History of gestational diabetes in prior , currently SNOMED Code(s): 540002995 ICD Code: O09.299 - SUPRVSN OF PREG W POOR REPRODCTV OR OBSTET HISTORY, UNSP TRI; Z86.32 - PERSONAL HISTORY OF GESTATIONAL DIABETES Status: Acute Current Visit: Yes (5) Depression SNOMED Code(s): 78641622 ICD Code: F32.9 - MAJOR DEPRESSIVE DISORDER, SINGLE EPISODE, UNSPECIFIED Status: Acute Current Visit: Yes (6) Depression affecting SNOMED Code(s): 04112213579221 ICD Code: O99.340 - OTH MENTAL DISORDERS COMPLICATING , UNSP TRIMESTER; F32.9 - MAJOR DEPRESSIVE DISORDER, SINGLE EPISODE, UNSPECIFIED Status: Acute Current Visit: Yes (7) Gestational hypertension SNOMED Code(s): 32699626 ICD Code: O13.9 - GESTATIONAL HTN W/O SIGNIFICANT PROTEINURIA, UNSP TRIMESTER Status: Acute Current Visit: No Qualifiers: Trimester: third trimester Qualified Code(s): O13.3 - Gestational [ -induced] hypertension without significant proteinuria, third trimester Problem List Initiated/Reviewed/Updated: No Orders Last 24hrs: Active Orders 24 hr Category Date Time Status Patient Status [ADT] Routine ADT 10/17/18 14:00 Active Patient Status [ADT] Routine ADT 10/17/18 16:34 Active Activity as Tolerated [RC] PFP Care 10/17/18 16:34 Active Communication Order [RC] ASDIRECTED Care 10/17/18 16:34 Active Heart Tones [RC] ASDIRECTED Care 10/17/18 16:34 Active Non Stress Test [RC] PER UNIT ROUTINE Care 10/17/18 14:00 Active Non Stress Test [RC] PER UNIT ROUTINE Care 10/17/18 16:34 Active Notify Provider [RC] PFP Care 10/17/18 16:34 Active Notify Provider [RC] PRN Care 10/17/18 16:34 Active Peripheral IV Care [RC] . DIRECTED Care 10/17/18 16:34 Active Vital Signs [RC] PER UNIT ROUTINE Care 10/17/18 14:00 Active Vital Signs [RC] PER UNIT ROUTINE Care 10/17/18 16:34 Active Regular Diet [DIET] Diet 10/17/18 Lunch Active RAPID PLASMA REAGIN,RPR [CHEM] Routine Lab 10/17/18 14:14 Received Lactated Ringers [Ringers, Lactated] 1,000 ml Med 10/17/18 16:45 Active IV ASDIRECTED Nalbuphine [Nubain] Med 10/17/18 16:33 Active 10 mg IVPUSH Q2H PRN Ondansetron [Zofran] Med 10/17/18 16:33 Active 4 mg IVPUSH Q4H PRN Oxytocin/Lactated Ringers [Pitocin in LR 10 Units/1,000 Med 10/17/18 16:45 Active ML] 10 unit in 1,000 ml IV .CONTINUOUS Oxytocin/Lactated Ringers [Pitocin in LR 10 Units/1,000 Med 10/17/18 16:45 Active ML] 10 unit in 1,000 ml IV TITRATE Sodium Chloride 0.9% [Saline Flush] Med 10/17/18 16:33 Active 10 ml FLUSH ASDIRECTED PRN Electronic Heart Tones Ext w TOCO [WOMSER] Oth 10/17/18 16:34 Ordered Routine Electronic Heart Tones Internal [WOMSER] Per Unit Oth 10/17/18 16:34 Ordered Routine Peripheral IV Insertion Adult [OM.PC] Routine Oth 10/17/18 16:34 Ordered Resuscitation Status Routine Resus Stat 10/17/18 14:00 Ordered Medication Orders Lactated Ringer's (Ringers, Lactated) 1,000 mls @ 100 mls/hr IV ASDIRECTED HEMANTH Oxytocin/Lactated Ringer's (Pitocin In Lr 10 Units/1,000 Ml) 10 unit in 1,000 mls @ 12 mls/hr IV TITRATE HEMANTH; Protocol Oxytocin/Lactated Ringer's (Pitocin In Lr 10 Units/1,000 Ml) 10 unit in 1,000 mls @ 500 mls/hr IV .CONTINUOUS HEMANTH Nalbuphine HCl (Nubain) 10 mg IVPUSH Q2H PRN PRN Reason: Pain Ondansetron HCl (Zofran) 4 mg IVPUSH Q4H PRN PRN Reason: Nausea/Vomiting Sodium Chloride (Saline Flush) 10 ml FLUSH ASDIRECTED PRN PRN Reason: Keep Vein Open Assessment/Plan Comment:: Refer to observation for medical induction of labor with gestational hypertension Artificial rupture membranes with Amnihook performed with return of small amount of clear fluid. Mother and tolerated without difficulty. Start Pitocin for induction of labor Continuous monitoring Place IV and have Lactated Ringer's at 125 ml/hr May have small amounts of regular diet Activity as tolerated May have epidural as desired Plans to breast-feed after delivery Anticipate vaginal delivery unless otherwise indicated Lorenzo Haley M.D. 5:32 PM 10/17/2018
[2018-10-17] MEDS ORDERED: diphenhydrAMINE 50 MG/ML SDV IVPUSH PRN (20:31)
[2018-10-17] MEDS ORDERED: fentaNYL 100 MCG/2 ML SDV EPIDUR PRN (20:31)
[2018-10-17] MEDS ORDERED: ePHEDrine 50 MG/ML SDV IVPUSH PRN (20:31)
[2018-10-17] MEDS ORDERED: Bupivacaine/fentaNYL/NS 100 ML Bag EPIDUR PRN (20:31)
--- NOTE | 2018-10-17 20:59 | PCM.PREANE ---
Preanesthetic Assessment - Procedure Proposed Procedure: una - Anesthesia/Transfusion/Family Hx Anesthesia History: Prior Anesthesia Without Reaction Family History of Anesthesia Reaction: No Transfusion History: No Prior Transfusion(s) - Review of Systems General: No Symptoms Pulmonary: No Symptoms Cardiovascular: No Symptoms Gastrointestinal: No Symptoms Neurological: No Symptoms Other: Reports: Sinus Problem, Depression, Anxiety - Physical Assessment Pulse: 94 O2 Sat by Pulse Oximetry: 98 Respiratory Rate: 16 Blood Pressure: 149/96 Vital Signs: Last Vital Signs Temp 98.3 F 10/17/18 14:45 Pulse 94 10/17/18 17:32 Resp 16 10/17/18 14:45 BP 149/96 H 10/17/18 16:01 Pulse Ox 98 10/17/18 14:45 Height: 5 ft 6 in Weight: 103.419 kg ASA Class: 2 Mental Status: Alert & Oriented x3 Airway Class: Mallampati = 1 Dentition: Reports: Normal Dentition Thyro-Mental Finger Breadths: 3 Mouth Opening Finger Breadths: 3 ROM/Head Extension: Full Lungs: Clear to Auscultation, Normal Respiratory Effort Cardiovascular: Regular Rate, Regular Rhythm - Lab Values: Laboratory Last Values WBC 11.77 K/mm3 (3.98-10.04) H 10/17/18 14:14 RBC 4.29 M/mm3 (3.98-5.22) 10/17/18 14:14 Hgb 10.3 gm/L (11.2-15.7) L 10/17/18 14:14 Hct 33.1 % (34.1-44.9) L 10/17/18 14:14 MCV 77.2 fl (79.4-94.8) L D 10/17/18 14:14 MCH 24.0 pg (25.6-32.2) L 10/17/18 14:14 MCHC 31.1 g/dl (32.2-35.5) L 10/17/18 14:14 RDW Std Deviation 45.1 fL (36.4-46.3) 10/17/18 14:14 Plt Count 307 K/mm3 (182-369) 10/17/18 14:14 MPV 10.3 fl (9.4-12.3) 10/17/18 14:14 Neut % (Auto) 75.9 % (34.0-71.1) H 10/17/18 14:14 Lymph % (Auto) 15.8 % (19.3-51.7) L 10/17/18 14:14 [place] % (Auto) 5.4 % (4.7-12.5) 10/17/18 14:14 Eos % (Auto) 2.4 (0.7-5.8) 10/17/18 14:14 Baso % (Auto) 0.3 % (0.1-1.2) 10/17/18 14:14 Neut # (Auto) 8.95 K/mm3 (1.56-6.13) H 10/17/18 14:14 Lymph # (Auto) 1.86 K/mm3 (1.18-3.74) 10/17/18 14:14 [place] # (Auto) 0.63 K/mm3 (0.24-0.36) H 10/17/18 14:14 Eos # (Auto) 0.28 K/mm3 (0.04-0.36) 10/17/18 14:14 Baso # (Auto) 0.03 K/mm3 (0.01-0.08) 10/17/18 14:14 Sodium 138 mEq/L (136-145) 10/17/18 14:14 Potassium 4.0 mEq/L (3.5-5.1) 10/17/18 14:14 Chloride 104 mEq/L (98-107) 10/17/18 14:14 Carbon Dioxide 20 mEq/L (21-32) L 10/17/18 14:14 Anion Gap 18.0 (5-15) H 10/17/18 14:14 BUN 7 mg/dL (7-18) 10/17/18 14:14 Creatinine 0.7 mg/dL (0.55-1.02) 10/17/18 14:14 Est Cr Clr Drug Dosing 115.01 mL/min 10/17/18 14:14 Estimated GFR (MDRD) > 60 mL/min (>60) 10/17/18 14:14 BUN/Creatinine Ratio 10.0 (14-18) L 10/17/18 14:14 Glucose 106 mg/dL (74-106) 10/17/18 14:14 Calcium 8.9 mg/dL (8.5-10.1) 10/17/18 14:14 Total Bilirubin 0.3 mg/dL (0.2-1.0) 10/17/18 14:14 AST 20 U/L (15-37) 10/17/18 14:14 ALT 15 U/L (14-59) 10/17/18 14:14 Alkaline Phosphatase 116 U/L (46-116) 10/17/18 14:14 Total Protein 6.6 g/dl (6.4-8.2) 10/17/18 14:14 Albumin 2.7 g/dl (3.4-5.0) L 10/17/18 14:14 Globulin 3.9 gm/dL 10/17/18 14:14 Albumin/Globulin Ratio 0.7 (1-2) L 10/17/18 14:14 Urine Color Yellow (Yellow) 10/17/18 14:35 Urine Appearance Clear (Clear) 10/17/18 14:35 Urine pH 7.0 (5.0-8.0) 10/17/18 14:35 Ur Specific [place] 1.025 (1.005-1.030) 10/17/18 14:35 Urine Protein Trace (Negative) H 10/17/18 14:35 Urine Glucose (UA) Negative (Negative) 10/17/18 14:35 Urine Ketones Negative (Negative) 10/17/18 14:35 Urine Occult Blood Negative (Negative) 10/17/18 14:35 Urine Nitrite Negative (Negative) 10/17/18 14:35 Urine Bilirubin Negative (Negative) 10/17/18 14:35 Urine Urobilinogen 1.0 (0.2-1.0) 10/17/18 14:35 Ur Leukocyte Esterase Negative (Negative) 10/17/18 14:35 Urine RBC 0-5 /hpf (0-5) 10/17/18 14:35 Urine WBC 0-5 /hpf (0-5) 10/17/18 14:35 Ur Squamous Epith Cells 0-5 /hpf (0-5) 10/17/18 14:35 Urine Bacteria Rare /hpf (FEW) 10/17/18 14:35 Urine Mucus Few /hpf (FEW) 10/17/18 14:35 Ur Random Creatinine 128.8 mg/dL (30.0-125.0) H 10/17/18 14:35 U Random Total Protein 16.6 mg/dL (0.0-11.8) H 10/17/18 14:35 Protein/Creatinin Ratio 128.9 mg/g (0-149) 10/17/18 14:35 - Allergies Allergies/Adverse Reactions: Allergies Allergy/AdvReac Type Severity Reaction Status Date / Time No Known Allergies Allergy Verified 10/17/18 19:17 - Blood Blood Available: No - Acknowledgements Anesthesia Type Planned: Epidural Pt an Appropriate Candidate for the Planned Anesthesia: Yes Alternatives and Risks of Anesthesia Discussed w Pt/Guardian: Yes Pt/Guardian Understands and Agrees with Anesthesia Plan: Yes PreAnesthesia Questionnaire - Past Health History Medical/Surgical History: Denies Medical/Surgical History Cardiovascular History: Reports: Hypertension Other Cardiovascular History: Gestational Respiratory History: Reports: None Other Respiratory History: Currently using inhaler for allergies per pt Gastrointestinal History: Reports: GERD (with preg) [employer] History: Reports: : 3 Para: 2 Psychiatric History: Reports: Anxiety, Depression - Past Surgical History HEENT Surgical History: Reports: Tonsillectomy GI Surgical History: Reports: Colonoscopy, EGD - History Comment History Comment: vits - SUBSTANCE USE Smoking Status *Q: Former Smoker Tobacco Use Within Last Twelve Months: No Second Hand Smoke Exposure: No Days Per Week of Alcohol Use: 0 Recreational Drug Use History: No - HOME MEDS Home Medications: Home Meds PNV95/Ferrous Fumarate/FA [ Tablet] 1 tab PO DAILY 10/17/18 [History] Sertraline [Zoloft] 25 mg PO DAILY 10/17/18 [History] - CURRENT (IN HOUSE) MEDS Current Meds: Current Medications Diphenhydramine HCl (Benadryl) 25 mg IVPUSH Q6H PRN PRN Reason: pruritis Ephedrine Sulfate (Ephedrine Sulfate) 5 mg IVPUSH ASDIRECTED PRN PRN Reason: Hypotension Fentanyl (Sublimaze) 100 mcg EPIDUR Q3H PRN PRN Reason: Pain Last Admin: 10/17/18 20:55 Dose: 100 mcg Fentanyl/Bupivacaine HCl (Fentanyl/Bupivacaine/Ns 2 Mcg-0.125% 100 Ml) 100 ml EPIDUR ASDIRECTED PRN PRN Reason: Pain Last Admin: 10/17/18 20:54 Dose: 100 ml Lactated Ringer's (Ringers, Lactated) 1,000 mls @ 100 mls/hr IV ASDIRECTED HEMANTH Last Admin: 10/17/18 20:43 Dose: 100 mls/hr Oxytocin/Lactated Ringer's (Pitocin In Lr 10 Units/1,000 Ml) 10 unit in 1,000 mls @ 12 mls/hr IV TITRATE HEMANTH; Protocol Last Titration: 10/17/18 18:35 Dose: 6 munits/min, 36 mls/hr Oxytocin/Lactated Ringer's (Pitocin In Lr 10 Units/1,000 Ml) 10 unit in 1,000 mls @ 500 mls/hr IV .CONTINUOUS HEMANTH Nalbuphine HCl (Nubain) 10 mg IVPUSH Q2H PRN PRN Reason: Pain Ondansetron HCl (Zofran) 4 mg IVPUSH Q4H PRN PRN Reason: Nausea/Vomiting Sodium Chloride (Saline Flush) 10 ml FLUSH ASDIRECTED PRN PRN Reason: Keep Vein Open Discontinued Medications Acetaminophen/Butalbital/Caffeine (Fioricet 325-50-40 Mg) 2 tab PO ONETIME ONE Stop: 10/17/18 14:57 Last Admin: 10/17/18 19:20 Dose: Not Given
[2018-10-18] MEDS ORDERED: Bupivacaine 0.25% 10 ML SDV ONE
[2018-10-18] MEDS: Lactated Ringers 1,000 ML IV SCH (00:42)
[2018-10-18] MEDS ORDERED: Misoprostol 200 MCG Tab ONE (01:32)
--- NOTE | 2018-10-18 02:07 | PCM.DEL ---
L & D Note - General Info Date of Service: 10/18/18 Mother's Due Date: 10/28/18 - Delivery Note Labor: Augmented by ARM, Augmented by Oxytocin Cervical Ripening Method: Oxytocin Delivery Outcome: Livebirth Delivery Method: Spontaneous Vaginal Delivery-Single Presentation: Right Occiput Anterior (KENTON) Nuchal Cord: None Prep: Povidone-Iodine (Betadine Anesthesia Type: Epidural Amniotic Fluid Description: Clear Episiotomy Type: None Laceration: None Placenta: Intact, Spontaneous Cord: 3 Vessels Estimated Blood Loss: 400 Resuscitation Needed: Yes : Suctioned, Bulb Syringe, Stimulated, Warmed, [place] Used, Warmer Used Provider: Lorenzo Haley Score 1 min: 7 Score 5 min: 8 Second Stage Interventions: Reports: Pushing Effectively, Pushing, Stirrups/Leg Supports Delivery Comments (Free Text/Narrative):: Stage I: Jose Carlos Talavera was admitted for induction of labor in the setting of gestational hypertension. She was sent down for additional monitoring from the clinic after she had elevated blood pressures there at a routine appointment in the 140s to 150s/70s to 80s. She was down on labor and delivery she continued to have elevated blood pressures into the 140s to 150s/70s to 90s. Her blood work was not consistent with preeclampsia. Due to the gestational hypertension decision was made to deliver patient as she was after 37 weeks gestational age. On admission her cervix was dilated to 3 cm. She was GBS negative. She had artificial rupture membranes with small amount of clear fluid. She was started on Pitocin for augmentation of labor. She was given an epidural for anesthesia. She progressed to complete and pushing. Stage II: On 10/18/2018 she had a normal vaginal delivery of a live female infant at 01-1. Apgars of 7 & 8. Weight of 3320 g (7 lbs 5.1 oz). Length of 20 inches. There was no nuchal cord. Infant was delivered in KENTON position. The cord was doubly clamped and cut by father of the . Infant was placed on mother's abdomen and then taken to the warmer for further resuscitation. Stage III: She had a spontaneous delivery of an intact placenta in [place] presentation. Three vessel cord. She was given pitocin and fundal massage. She had no lacerations. She was given Cytotec 1000 mcg rectally to help with uterine tone due to history of uterine atony in previous delivery and mild uterine atony at this time. Mom and baby were stable to recovery. EBL of 400 mL. Lorenzo Haley MD 2:04 AM 10/18/2018 Induction Criteria - Muñoz Score Muñoz Score Dilation: 3-4 cm Muñoz Score Effacement: 60-70% Muñoz Score 's Station: -2 Muñoz Score Consistency: Soft Muñoz Score Cervix Position: Anterior Muñoz Score Total: 9 Muñoz Score Presenting Part: Reports: Cephalic - Induction Gestational Age >/= 39 wks: No Medical Indication: Gestational hypertension Estimated Pelvis: Reports: Adequate Reassuring Monitoring Strip: Yes Absence of Tachy Systole: Yes - Augmentation Estimated Pelvis: Reports: Adequate Weight Estimated:: Reports: AGA Reassuring Monitoring Strip: Yes Absence of Tachy Systole: Yes - General Info Date of Service: 10/18/18 - Patient Data Vitals - Most Recent: Last Vital Signs Temp 36.8 C 10/17/18 14:45 Pulse 94 10/17/18 20:59 Resp 16 10/17/18 20:59 BP 149/96 H 10/17/18 20:59 Pulse Ox 98 10/17/18 20:59 Weight - Most Recent: 103.419 kg Lab Results Last 24 Hours: Laboratory Results - last 24 hr 10/17/18 10/17/18 10/17/18 Range/Units 14:14 14:14 14:35 WBC 11.77 H (3.98-10.04) K/mm3 RBC 4.29 (3.98-5.22) M/mm3 Hgb 10.3 L (11.2-15.7) gm/L Hct 33.1 L (34.1-44.9) % MCV 77.2 L D (79.4-94.8) fl MCH 24.0 L (25.6-32.2) pg MCHC 31.1 L (32.2-35.5) g/dl RDW Std Deviation 45.1 (36.4-46.3) fL Plt Count 307 (182-369) K/mm3 MPV 10.3 (9.4-12.3) fl Neut % (Auto) 75.9 H (34.0-71.1) % Lymph % (Auto) 15.8 L (19.3-51.7) % [place] % (Auto) 5.4 (4.7-12.5) % Eos % (Auto) 2.4 (0.7-5.8) Baso % (Auto) 0.3 (0.1-1.2) % Neut # (Auto) 8.95 H (1.56-6.13) K/mm3 Lymph # (Auto) 1.86 (1.18-3.74) K/mm3 [place] # (Auto) 0.63 H (0.24-0.36) K/mm3 Eos # (Auto) 0.28 (0.04-0.36) K/mm3 Baso # (Auto) 0.03 (0.01-0.08) K/mm3 Sodium 138 (136-145) mEq/L Potassium 4.0 (3.5-5.1) mEq/L Chloride 104 (98-107) mEq/L Carbon Dioxide 20 L (21-32) mEq/L Anion Gap 18.0 H (5-15) BUN 7 (7-18) mg/dL Creatinine 0.7 (0.55-1.02) mg/dL Est Cr Clr Drug Dosing 115.01 mL/min Estimated GFR (MDRD) > 60 (>60) mL/min BUN/Creatinine Ratio 10.0 L (14-18) Glucose 106 (74-106) mg/dL Calcium 8.9 (8.5-10.1) mg/dL Total Bilirubin 0.3 (0.2-1.0) mg/dL AST 20 (15-37) U/L ALT 15 (14-59) U/L Alkaline Phosphatase 116 (46-116) U/L Total Protein 6.6 (6.4-8.2) g/dl Albumin 2.7 L (3.4-5.0) g/dl Globulin 3.9 gm/dL Albumin/Globulin Ratio 0.7 L (1-2) Urine Color Yellow (Yellow) Urine Appearance Clear (Clear) Urine pH 7.0 (5.0-8.0) Ur Specific [place] 1.025 (1.005-1.030) Urine Protein Trace H (Negative) Urine Glucose (UA) Negative (Negative) Urine Ketones Negative (Negative) Urine Occult Blood Negative (Negative) Urine Nitrite Negative (Negative) Urine Bilirubin Negative (Negative) Urine Urobilinogen 1.0 (0.2-1.0) Ur Leukocyte Esterase Negative (Negative) Urine RBC 0-5 (0-5) /hpf Urine WBC 0-5 (0-5) /hpf Ur Squamous Epith Cells 0-5 (0-5) /hpf Urine Bacteria Rare (FEW) /hpf Urine Mucus Few (FEW) /hpf Ur Random Creatinine (30.0-125.0) mg/dL U Random Total Protein (0.0-11.8) mg/dL Protein/Creatinin Ratio (0-149) mg/g 10/17/18 Range/Units 14:35 WBC (3.98-10.04) K/mm3 RBC (3.98-5.22) M/mm3 Hgb (11.2-15.7) gm/L Hct (34.1-44.9) % MCV (79.4-94.8) fl MCH (25.6-32.2) pg MCHC (32.2-35.5) g/dl RDW Std Deviation (36.4-46.3) fL Plt Count (182-369) K/mm3 MPV (9.4-12.3) fl Neut % (Auto) (34.0-71.1) % Lymph % (Auto) (19.3-51.7) % [place] % (Auto) (4.7-12.5) % Eos % (Auto) (0.7-5.8) Baso % (Auto) (0.1-1.2) % Neut # (Auto) (1.56-6.13) K/mm3 Lymph # (Auto) (1.18-3.74) K/mm3 [place] # (Auto) (0.24-0.36) K/mm3 Eos # (Auto) (0.04-0.36) K/mm3 Baso # (Auto) (0.01-0.08) K/mm3 Sodium (136-145) mEq/L Potassium (3.5-5.1) mEq/L Chloride (98-107) mEq/L Carbon Dioxide (21-32) mEq/L Anion Gap (5-15) BUN (7-18) mg/dL Creatinine (0.55-1.02) mg/dL Est Cr Clr Drug Dosing mL/min Estimated GFR (MDRD) (>60) mL/min BUN/Creatinine Ratio (14-18) Glucose (74-106) mg/dL Calcium (8.5-10.1) mg/dL Total Bilirubin (0.2-1.0) mg/dL AST (15-37) U/L ALT (14-59) U/L Alkaline Phosphatase (46-116) U/L Total Protein (6.4-8.2) g/dl Albumin (3.4-5.0) g/dl Globulin gm/dL Albumin/Globulin Ratio (1-2) Urine Color (Yellow) Urine Appearance (Clear) Urine pH (5.0-8.0) Ur Specific [place] (1.005-1.030) Urine Protein (Negative) Urine Glucose (UA) (Negative) Urine Ketones (Negative) Urine Occult Blood (Negative) Urine Nitrite (Negative) Urine Bilirubin (Negative) Urine Urobilinogen (0.2-1.0) Ur Leukocyte Esterase (Negative) Urine RBC (0-5) /hpf Urine WBC (0-5) /hpf Ur Squamous Epith Cells (0-5) /hpf Urine Bacteria (FEW) /hpf Urine Mucus (FEW) /hpf Ur Random Creatinine 128.8 H (30.0-125.0) mg/dL U Random Total Protein 16.6 H (0.0-11.8) mg/dL Protein/Creatinin Ratio 128.9 (0-149) mg/g Med Orders - Current: Current Medications Diphenhydramine HCl (Benadryl) 25 mg IVPUSH Q6H PRN PRN Reason: pruritis Ephedrine Sulfate (Ephedrine Sulfate) 5 mg IVPUSH ASDIRECTED PRN PRN Reason: Hypotension Fentanyl (Sublimaze) 100 mcg EPIDUR Q3H PRN PRN Reason: Pain Last Admin: 10/17/18 20:55 Dose: 100 mcg Fentanyl/Bupivacaine HCl (Fentanyl/Bupivacaine/Ns 2 Mcg-0.125% 100 Ml) 100 ml EPIDUR ASDIRECTED PRN PRN Reason: Pain Last Admin: 10/17/18 20:54 Dose: 100 ml Lactated Ringer's (Ringers, Lactated) 1,000 mls @ 100 mls/hr IV ASDIRECTED HEMANTH Last Admin: 10/18/18 00:42 Dose: 100 mls/hr Oxytocin/Lactated Ringer's (Pitocin In Lr 10 Units/1,000 Ml) 10 unit in 1,000 mls @ 12 mls/hr IV TITRATE HEMANTH; Protocol Last Titration: 10/17/18 18:35 Dose: 6 munits/min, 36 mls/hr Oxytocin/Lactated Ringer's (Pitocin In Lr 10 Units/1,000 Ml) 10 unit in 1,000 mls @ 500 mls/hr IV .CONTINUOUS HEMANTH Nalbuphine HCl (Nubain) 10 mg IVPUSH Q2H PRN PRN Reason: Pain Ondansetron HCl (Zofran) 4 mg IVPUSH Q4H PRN PRN Reason: Nausea/Vomiting Sodium Chloride (Saline Flush) 10 ml FLUSH ASDIRECTED PRN PRN Reason: Keep Vein Open Discontinued Medications Acetaminophen/Butalbital/Caffeine (Fioricet 325-50-40 Mg) 2 tab PO ONETIME ONE Stop: 10/17/18 14:57 Last Admin: 10/17/18 19:20 Dose: Not Given Misoprostol (Cytotec) Confirm Administered Dose 200 mcg .ROUTE .STK-MED ONE Stop: 10/18/18 01:33 - Problem List & Annotations (1) 38 weeks gestation of SNOMED Code(s): 47115598 Code(s): Z3A.38 - 38 WEEKS GESTATION OF Status: Acute Current Visit: Yes (2) History of gestational hypertension SNOMED Code(s): 416179844 Code(s): Z87.59 - PERSONAL HISTORY OF COMP OF PREG, CHLDBRTH AND THE PUERP Status: Acute Current Visit: Yes (3) History of gestational diabetes SNOMED Code(s): 162946556 Code(s): Z86.32 - PERSONAL HISTORY OF GESTATIONAL DIABETES Status: Acute Current Visit: Yes (4) History of gestational diabetes in prior , currently SNOMED Code(s): 890052174 Code(s): O09.299 - SUPRVSN OF PREG W POOR REPRODCTV OR OBSTET HISTORY, UNSP TRI; Z86.32 - PERSONAL HISTORY OF GESTATIONAL DIABETES Status: Acute Current Visit: Yes (5) Depression SNOMED Code(s): 42498068 Code(s): F32.9 - MAJOR DEPRESSIVE DISORDER, SINGLE EPISODE, UNSPECIFIED Status: Acute Current Visit: Yes (6) Depression affecting SNOMED Code(s): 63360361519643 Code(s): O99.340 - OTH MENTAL DISORDERS COMPLICATING , UNSP TRIMESTER; F32.9 - MAJOR DEPRESSIVE DISORDER, SINGLE EPISODE, UNSPECIFIED Status: Acute Current Visit: Yes (7) Gestational hypertension SNOMED Code(s): 62258967 Code(s): O13.9 - GESTATIONAL HTN W/O SIGNIFICANT PROTEINURIA, UNSP TRIMESTER Status: Acute Current Visit: No Qualifiers: Trimester: third trimester Qualified Code(s): O13.3 - Gestational [ -induced] hypertension without significant proteinuria, third trimester (8) Vaginal delivery SNOMED Code(s): 070303657 Code(s): O80 - ENCOUNTER FOR FULL-TERM UNCOMPLICATED DELIVERY Status: Acute Current Visit: No - Problem List Review Problem List Initiated/Reviewed/Updated: Yes - My Orders Last 24 Hours: My Active Orders 10/17/18 14:00 Patient Status [ADT] Routine Non Stress Test [RC] PER UNIT ROUTINE Vital Signs [RC] PER UNIT ROUTINE Resuscitation Status Routine 10/17/18 14:14 RAPID PLASMA REAGIN,RPR [CHEM] Routine 10/17/18 16:33 Nalbuphine [Nubain] 10 mg IVPUSH Q2H PRN Ondansetron [Zofran] 4 mg IVPUSH Q4H PRN Sodium Chloride 0.9% [Saline Flush] 10 ml FLUSH ASDIRECTED PRN 10/17/18 16:34 Patient Status [ADT] Routine Activity as Tolerated [RC] PFP Communication Order [RC] ASDIRECTED Heart Tones [RC] ASDIRECTED Non Stress Test [RC] PER UNIT ROUTINE Notify Provider [RC] PFP Notify Provider [RC] PRN Peripheral IV Care [RC] . DIRECTED Vital Signs [RC] PER UNIT ROUTINE Electronic Heart Tones Ext w TOCO [WOMSER] Routine Electronic Heart Tones Internal [WOMSER] Per Unit Routine Peripheral IV Insertion Adult [OM.PC] Routine 10/17/18 16:45 Lactated Ringers [Ringers, Lactated] 1,000 ml IV ASDIRECTED Oxytocin/Lactated Ringers [Pitocin in LR 10 Units/1,000 ML] 10 unit in 1,000 ml IV .CONTINUOUS Oxytocin/Lactated Ringers [Pitocin in LR 10 Units/1,000 ML] 10 unit in 1,000 ml IV TITRATE 10/17/18 Lunch Regular Diet [DIET] 10/18/18 01:52 Patient Status Manage Transfer [TRANSFER] Routine - Plan Plan:: Admit to inpatient following normal spontaneous vaginal delivery Continue Pitocin per unit protocol following delivery of placenta and lactated Ringer's until tolerating regular diet Regular diet Vitals per unit routine Continue with close monitoring of vitals to ensure that she does not have elevation of her blood pressure that would necessitate medical treatment. Continue to monitor for signs of preeclampsia. Ibuprofen and Tylenol for pain control Assist with breast-feeding as needed Continue to monitor lochia Anticipate discharge home on day #1 Lorenzo Haley MD 2:04 AM 10/18/2018
[2018-10-18] MEDS ORDERED: Lanolin 100% Cream 7 GM Tube TOP PRN (03:09)
[2018-10-18] MEDS ORDERED: Witch Hazel Medicated Pads 40/Jar TOP PRN (03:09)
[2018-10-18] MEDS ORDERED: Misoprostol 200 MCG Tab RECTAL PRN (03:09)
[2018-10-18] MEDS ORDERED: Benzocaine/Menthol 20%-0.5% Spray 56 GM Canister TOP PRN (03:09)
[2018-10-18] MEDS ORDERED: Docusate Sodium 100 MG Cap PO PRN (03:09)
[2018-10-18] MEDS ORDERED: Hydrocortisone Acetate 25 MG Supp RECTAL PRN (03:09)
[2018-10-18] MEDS ORDERED: Oxytocin/Lactated Ringers 10 UNIT/1,000 ML BAG IV SCH (03:09)
[2018-10-18] MEDS: Ibuprofen 600 MG Tab PO PRN ×3 (04:15→20:42)
[2018-10-18] MEDS: Prenatal Multivitamin with Calcium/Folic Acid/Iron Tab PO SCH (08:10)
[2018-10-18] MEDS: Sertraline 50 MG Tab PO SCH (08:10)
[2018-10-18] MEDS: Ferrous Sulfate 325 MG Tab PO SCH (08:10)
--- NOTE | 2018-10-18 13:23 | PCM48HPAN ---
Post Anesthesia Note - EVALUATION WITHIN 48HRS OF ANESTHETIC Vital Signs in Normal Range: Yes Patient Participated in Evaluation: Yes Respiratory Function Stable: Yes Airway Patent: Yes Cardiovascular Function Stable: Yes Hydration Status Stable: Yes Pain Control Satisfactory: Yes Nausea and Vomiting Control Satisfactory: Yes Mental Status Recovered: Yes Pulse Rate: 94 Resp Rate: 16 Blood Pressure: 149/96
[2018-10-18] MEDS: Acetaminophen 325 MG Tab PO PRN (16:21)
[2018-10-19] MEDS: Acetaminophen 325 MG Tab PO PRN (00:15)
[2018-10-19] MEDS: Ibuprofen 600 MG Tab PO PRN (05:35)
--- NOTE | 2018-10-19 08:49 | PCM.SN ---
- Free Text/Narrative Note: Post Progress Note PPD # 1 Subjective: Doing well overall. Ambulating without difficulty. Lochia minimal. Voiding without difficulty. Tolerating regular diet without nausea or vomiting. Pain controlled with oral medications. Patient reports that she is having some tightness and pain in her back where she had the epidural placed. Breast- feeding with some difficulty and supplementing with bottle feeding. Denies any headaches, scotomata or epigastric pain. Objective: Vitals: Vital Signs - 24 hr 10/18/18 10/18/18 10/18/18 13:23 16:08 20:05 Temperature 36.7 C 36.1 C Pulse, 94 79 74 Peripheral Respiratory 16 15 14 Rate Blood Pressure 149/96 H 144/88 H 117/88 O2 Sat by Pulse 99 95 Oximetry 10/19/18 00:15 Temperature 36.1 C Pulse, 73 Peripheral Respiratory 14 Rate Blood Pressure 122/90 O2 Sat by Pulse 99 Oximetry Physical Exam General: Alert and oriented, no acute distress Lungs: Clear to auscultation bilaterally Heart: Regular rate and rhythm Abdomen: Soft, minimal appropriate tenderness, non-distended, fundus midline, nontender, and an fingerbreadth below the umbilicus Extremities: Trace edema in bilateral lower extremities to mid shins Laboratory Tests 10/17/18 10/17/18 10/17/18 Range/Units 14:14 14:14 14:14 WBC 11.77 H (3.98-10.04) K/mm3 RBC 4.29 (3.98-5.22) M/mm3 Hgb 10.3 L (11.2-15.7) gm/L Hct 33.1 L (34.1-44.9) % MCV 77.2 L D (79.4-94.8) fl MCH 24.0 L (25.6-32.2) pg MCHC 31.1 L (32.2-35.5) g/dl RDW Std Deviation 45.1 (36.4-46.3) fL Plt Count 307 (182-369) K/mm3 MPV 10.3 (9.4-12.3) fl Neut % (Auto) 75.9 H (34.0-71.1) % Lymph % (Auto) 15.8 L (19.3-51.7) % [place] % (Auto) 5.4 (4.7-12.5) % Eos % (Auto) 2.4 (0.7-5.8) Baso % (Auto) 0.3 (0.1-1.2) % Neut # (Auto) 8.95 H (1.56-6.13) K/mm3 Lymph # (Auto) 1.86 (1.18-3.74) K/mm3 [place] # (Auto) 0.63 H (0.24-0.36) K/mm3 Eos # (Auto) 0.28 (0.04-0.36) K/mm3 Baso # (Auto) 0.03 (0.01-0.08) K/mm3 Sodium 138 (136-145) mEq/L Potassium 4.0 (3.5-5.1) mEq/L Chloride 104 (98-107) mEq/L Carbon Dioxide 20 L (21-32) mEq/L Anion Gap 18.0 H (5-15) BUN 7 (7-18) mg/dL Creatinine 0.7 (0.55-1.02) mg/dL Est Cr Clr Drug Dosing 115.01 mL/min Estimated GFR (MDRD) > 60 (>60) mL/min BUN/Creatinine Ratio 10.0 L (14-18) Glucose 106 (74-106) mg/dL Calcium 8.9 (8.5-10.1) mg/dL Total Bilirubin 0.3 (0.2-1.0) mg/dL AST 20 (15-37) U/L ALT 15 (14-59) U/L Alkaline Phosphatase 116 (46-116) U/L Total Protein 6.6 (6.4-8.2) g/dl Albumin 2.7 L (3.4-5.0) g/dl Globulin 3.9 gm/dL Albumin/Globulin Ratio 0.7 L (1-2) Urine Color (Yellow) Urine Appearance (Clear) Urine pH (5.0-8.0) Ur Specific [place] (1.005-1.030) Urine Protein (Negative) Urine Glucose (UA) (Negative) Urine Ketones (Negative) Urine Occult Blood (Negative) Urine Nitrite (Negative) Urine Bilirubin (Negative) Urine Urobilinogen (0.2-1.0) Ur Leukocyte Esterase (Negative) Urine RBC (0-5) /hpf Urine WBC (0-5) /hpf Ur Squamous Epith Cells (0-5) /hpf Urine Bacteria (FEW) /hpf Urine Mucus (FEW) /hpf Ur Random Creatinine (30.0-125.0) mg/dL U Random Total Protein (0.0-11.8) mg/dL Protein/Creatinin Ratio (0-149) mg/g RPR Non-reactive (NONREACTIVE) 10/17/18 10/17/18 10/18/18 Range/Units 14:35 14:35 05:36 WBC 14.49 H (3.98-10.04) K/mm3 RBC 3.99 (3.98-5.22) M/mm3 Hgb 9.3 L (11.2-15.7) gm/L Hct 30.9 L (34.1-44.9) % MCV 77.4 L (79.4-94.8) fl MCH 23.3 L (25.6-32.2) pg MCHC 30.1 L (32.2-35.5) g/dl RDW Std Deviation 44.9 (36.4-46.3) fL Plt Count 225 D (182-369) K/mm3 MPV 10.5 (9.4-12.3) fl Neut % (Auto) 73.3 H (34.0-71.1) % Lymph % (Auto) 17.9 L (19.3-51.7) % [place] % (Auto) 6.8 (4.7-12.5) % Eos % (Auto) 1.6 (0.7-5.8) Baso % (Auto) 0.2 (0.1-1.2) % Neut # (Auto) 10.62 H (1.56-6.13) K/mm3 Lymph # (Auto) 2.60 (1.18-3.74) K/mm3 [place] # (Auto) 0.98 H (0.24-0.36) K/mm3 Eos # (Auto) 0.23 (0.04-0.36) K/mm3 Baso # (Auto) 0.03 (0.01-0.08) K/mm3 Sodium (136-145) mEq/L Potassium (3.5-5.1) mEq/L Chloride (98-107) mEq/L Carbon Dioxide (21-32) mEq/L Anion Gap (5-15) BUN (7-18) mg/dL Creatinine (0.55-1.02) mg/dL Est Cr Clr Drug Dosing mL/min Estimated GFR (MDRD) (>60) mL/min BUN/Creatinine Ratio (14-18) Glucose (74-106) mg/dL Calcium (8.5-10.1) mg/dL Total Bilirubin (0.2-1.0) mg/dL AST (15-37) U/L ALT (14-59) U/L Alkaline Phosphatase (46-116) U/L Total Protein (6.4-8.2) g/dl Albumin (3.4-5.0) g/dl Globulin gm/dL Albumin/Globulin Ratio (1-2) Urine Color Yellow (Yellow) Urine Appearance Clear (Clear) Urine pH 7.0 (5.0-8.0) Ur Specific [place] 1.025 (1.005-1.030) Urine Protein Trace H (Negative) Urine Glucose (UA) Negative (Negative) Urine Ketones Negative (Negative) Urine Occult Blood Negative (Negative) Urine Nitrite Negative (Negative) Urine Bilirubin Negative (Negative) Urine Urobilinogen 1.0 (0.2-1.0) Ur Leukocyte Esterase Negative (Negative) Urine RBC 0-5 (0-5) /hpf Urine WBC 0-5 (0-5) /hpf Ur Squamous Epith Cells 0-5 (0-5) /hpf Urine Bacteria Rare (FEW) /hpf Urine Mucus Few (FEW) /hpf Ur Random Creatinine 128.8 H (30.0-125.0) mg/dL U Random Total Protein 16.6 H (0.0-11.8) mg/dL Protein/Creatinin Ratio 128.9 (0-149) mg/g RPR (NONREACTIVE) ASSESSMENT: 27-year-old female 013 s/p normal vaginal delivery PPD #1 with gestational hypertension, complicated by and history of gestational hypertension , history of gestational diabetes and depression PLAN: Doing well Breast-feeding with minimal difficulty. Assist as needed Lochia minimal. Continue to monitor for appropriate lochia. Continue routine care Vitals within normal limits with several mild range blood pressures but not elevated enough to necessitate medication treatment. Continue to monitor closely. No evidence of preeclampsia with severe features. No headache, vision changes or epigastric pain. Anticipate discharge home today Lorenzo Haley MD 8:48 AM 10/19/2018
--- NOTE | 2018-10-19 08:54 | PCM.DCSUM1 ---
Discharge Summary - Hospital Course Free Text/Narrative:: Date of Service: 10/18/18 Mother's Due Date: 10/28/18 - Delivery Note Labor: Augmented by ARM, Augmented by Oxytocin Cervical Ripening Method: Oxytocin Delivery Outcome: Livebirth Infant Delivery Method: Spontaneous Vaginal Delivery-Single Presentation: Right Occiput Anterior (KENTON) Nuchal Cord: None Prep: Povidone-Iodine (Betadine Anesthesia Type: Epidural Amniotic Fluid Description: Clear Episiotomy Type: None Laceration: None Placenta: Intact, Spontaneous Cord: 3 Vessels Estimated Blood Loss: 400 Resuscitation Needed: Yes [place]: Suctioned, Bulb Syringe, Stimulated, Warmed, [place] Used, Warmer Used Provider: Lorenzo Haley Score 1 min: 7 Score 5 min: 8 Second Stage Interventions: Reports: Pushing Effectively, Pushing, Stirrups/Leg Supports Delivery Comments (Free Text/Narrative):: Stage I: Jose Carlos Talavera was admitted for induction of labor in the setting of gestational hypertension. She was sent down for additional monitoring from the clinic after she had elevated blood pressures there at a routine appointment in the 140s to 150s/70s to 80s. She was down on labor and delivery she continued to have elevated blood pressures into the 140s to 150s/70s to 90s. Her blood work was not consistent with preeclampsia. Due to the gestational hypertension decision was made to deliver patient as she was after 37 weeks gestational age. On admission her cervix was dilated to 3 cm. She was GBS negative. She had artificial rupture membranes with small amount of clear fluid. She was started on Pitocin for augmentation of labor. She was given an epidural for anesthesia. She progressed to complete and pushing. Stage II: On 10/18/2018 she had a normal vaginal delivery of a live female infant at 01-1. Apgars of 7 & 8. Weight of 3320 g (7 lbs 5.1 oz). Length of 20 inches. There was no nuchal cord. was delivered in KENTON position. The cord was doubly clamped and cut by father of the infant. Infant was placed on mother's abdomen and then taken to the warmer for further resuscitation. Stage III: She had a spontaneous delivery of an intact placenta in Rocael presentation. Three vessel cord. She was given pitocin and fundal massage. She had no lacerations. She was given Cytotec 1000 mcg rectally to help with uterine tone due to history of uterine atony in previous delivery and mild uterine atony at this time. Mom and baby were stable to recovery. EBL of 400 mL. HPI Initial Comments: Date of Service: 10/18/18 Mother's Due Date: 10/28/18 - Delivery Note Labor: Augmented by ARM, Augmented by Oxytocin Cervical Ripening Method: Oxytocin Delivery Outcome: Livebirth Infant Delivery Method: Spontaneous Vaginal Delivery-Single Presentation: Right Occiput Anterior (KENTON) Nuchal Cord: None Prep: Povidone-Iodine (Betadine Anesthesia Type: Epidural Amniotic Fluid Description: Clear Episiotomy Type: None Laceration: None Placenta: Intact, Spontaneous Cord: 3 Vessels Estimated Blood Loss: 400 Resuscitation Needed: Yes [place]: Suctioned, Bulb Syringe, Stimulated, Warmed, [place] Used, Warmer Used Provider: Lorenzo Haley Score 1 min: 7 Score 5 min: 8 Second Stage Interventions: Reports: Pushing Effectively, Pushing, Stirrups/Leg Supports Delivery Comments (Free Text/Narrative):: Stage I: Jose Carlos Talavera was admitted for induction of labor in the setting of gestational hypertension. She was sent down for additional monitoring from the clinic after she had elevated blood pressures there at a routine appointment in the 140s to 150s/70s to 80s. She was down on labor and delivery she continued to have elevated blood pressures into the 140s to 150s/70s to 90s. Her blood work was not consistent with preeclampsia. Due to the gestational hypertension decision was made to deliver patient as she was after 37 weeks gestational age. On admission her cervix was dilated to 3 cm. She was GBS negative. She had artificial rupture membranes with small amount of clear fluid. She was started on Pitocin for augmentation of labor. She was given an epidural for anesthesia. She progressed to complete and pushing. Stage II: On 10/18/2018 she had a normal vaginal delivery of a live female at 01-1. Apgars of 7 & 8. Weight of 3320 g (7 lbs 5.1 oz). Length of 20 inches. There was no nuchal cord. Infant was delivered in KENTON position. The cord was doubly clamped and cut by father of the infant. was placed on mother's abdomen and then taken to the warmer for further resuscitation. Stage III: She had a spontaneous delivery of an intact placenta in Rocael presentation. Three vessel cord. She was given pitocin and fundal massage. She had no lacerations. She was given Cytotec 1000 mcg rectally to help with uterine tone due to history of uterine atony in previous delivery and mild uterine atony at this time. Mom and baby were stable to recovery. EBL of 400 mL. Brief History: Date of Service: 10/18/18. Mother's Due Date: 10/28/18. - Delivery Note. Labor: Augmented by ARM, Augmented by Oxytocin. Cervical Ripening Method: Oxytocin. Delivery Outcome: Livebirth. Infant Delivery Method : Spontaneous Vaginal Delivery-Single. Presentation: Right Occiput Anterior (KENTON). Nuchal Cord: None. Prep: Povidone-Iodine (Betadine. Anesthesia Type: Epidural. Amniotic Fluid Description: Clear. Episiotomy Type : None. Laceration: None. Placenta: Intact, Spontaneous. Cord: 3 Vessels. Estimated Blood Loss: 400. Resuscitation Needed: Yes. : Suctioned, Bulb Syringe, Stimulated, Warmed, [place] Used, Warmer Used. Provider : Lorenzo Haley. Score 1 min: 7. Score 5 min: 8. Second Stage Interventions: Reports: Pushing Effectively, Pushing, Stirrups/Leg Supports. Delivery Comments (Free Text/Narrative):: Stage I: Jose Carlos Talavera was admitted for induction of labor in the setting of gestational hypertension. She was sent down for additional monitoring from the clinic after she had elevated blood pressures there at a routine appointment in the 140s to 150s/70s to 80s. She was down on labor and delivery she continued to have elevated blood pressures into the 140s to 150s/70s to 90s. Her blood work was not consistent with preeclampsia. Due to the gestational hypertension decision was made to deliver patient as she was after 37 weeks gestational age. On admission her cervix was dilated to 3 cm. She was GBS negative. She had artificial rupture membranes with small amount of clear fluid. She was started on Pitocin for augmentation of labor. She was given an epidural for anesthesia. She progressed to complete and pushing. Stage II: On 10/18/2018 she had a normal vaginal delivery of a live female infant at 01-1. Apgars of 7 & 8. Weight of 3320 g (7 lbs 5.1 oz). Length of 20 inches. There was no nuchal cord. was delivered in KENTON position. The cord was doubly clamped and cut by father of the . was placed on mother's abdomen and then taken to the warmer for further resuscitation. Stage III: She had a spontaneous delivery of an intact placenta in Rocael presentation. Three vessel cord. She was given pitocin and fundal massage. She had no lacerations. She was given Cytotec 1000 mcg rectally to help with uterine tone due to history of uterine atony in previous delivery and mild uterine atony at this time. Mom and baby were stable to recovery. EBL of 400 mL. Diagnosis: Stroke: No - Discharge Data Discharge Date: 10/19/18 Discharge Disposition: Home, Self-Care 01 Condition: Good - Discharge Diagnosis/Problem(s) (1) 38 weeks gestation of SNOMED Code(s): 85627339 ICD Code: Z3A.38 - 38 WEEKS GESTATION OF Status: Acute Current Visit: Yes (2) History of gestational hypertension SNOMED Code(s): 749710752 ICD Code: Z87.59 - PERSONAL HISTORY OF COMP OF PREG, CHLDBRTH AND THE PUERP Status: Acute Current Visit: Yes (3) History of gestational diabetes SNOMED Code(s): 538096524 ICD Code: Z86.32 - PERSONAL HISTORY OF GESTATIONAL DIABETES Status: Acute Current Visit: Yes (4) History of gestational diabetes in prior , currently SNOMED Code(s): 144345911 ICD Code: O09.299 - SUPRVSN OF PREG W POOR REPRODCTV OR OBSTET HISTORY, UNSP TRI; Z86.32 - PERSONAL HISTORY OF GESTATIONAL DIABETES Status: Acute Current Visit: Yes (5) Depression SNOMED Code(s): 45802545 ICD Code: F32.9 - MAJOR DEPRESSIVE DISORDER, SINGLE EPISODE, UNSPECIFIED Status: Acute Current Visit: Yes (6) Depression affecting SNOMED Code(s): 34613925874871 ICD Code: O99.340 - OTH MENTAL DISORDERS COMPLICATING , UNSP TRIMESTER; F32.9 - MAJOR DEPRESSIVE DISORDER, SINGLE EPISODE, UNSPECIFIED Status: Acute Current Visit: Yes (7) Gestational hypertension SNOMED Code(s): 36124449 ICD Code: O13.9 - GESTATIONAL HTN W/O SIGNIFICANT PROTEINURIA, UNSP TRIMESTER Status: Acute Current Visit: No Qualifiers: Trimester: third trimester Qualified Code(s): O13.3 - Gestational [ -induced] hypertension without significant proteinuria, third trimester (8) Vaginal delivery SNOMED Code(s): 773263537 ICD Code: O80 - ENCOUNTER FOR FULL-TERM UNCOMPLICATED DELIVERY Status: Acute Current Visit: No - Patient Summary/Data Complications: Gestational hypertension leading to medical induction of labor Consults: None Hospital Course: Jose Carlos Talavera was admitted for medically indicated induction of labor in the setting of gestational hypertension. She had been seen in the clinic with elevation of her blood pressures in the 140s to 150s/70s to 80s. While she was evaluated in labor and delivery she continued to have elevated blood pressures into the 120s to 150s/70s to 90s. Her preeclampsia labs were all within normal limits. On admission her cervix was dilated to 3 cm. She was GBS negative. She was given pitocin for augmentation. She had artificial rupture of membranes with clear fluid.She was given an epidural for anesthesia. She progressed to complete and began pushing. On 10/18/2018 she had a normal vaginal delivery of a live female at 0121. Apgars of 7 and 8. Weight of 3320 g (7 pounds 5.1 ounces). Her course was uneventful. Her pain was well controlled and she had minimal lochia. She was ambulating, tolerating a regular diet and voiding normally. She was breast-feeding with bottle supplementation with minimal difficulty. She was afebrile and her hematocrit was 30.9 on day #0 approximately 6 hours after delivery. She desired to be discharged home on the morning of PPD #1. Her blood type is O+. - Patient Instructions Diet: Regular Diet as Tolerated Activity: Apply Ice, As Tolerated Activity, Other: Nothing in the vagina for 6 weeks. Driving: May Drive Today Showering/Bathing: May Shower Notify Provider of: Fever, Increased Pain, Swelling and Redness, Drainage, Nausea and/or Vomiting Other/Special Instructions: Please contact your physician's office if you have heavy vaginal bleeding enough to soak a pad in less than an hour for several hours. Monitor for any signs of an infection in the breasts with severe pain or redness of the breast. Contact our office if you have any signs of worsening blood pressure including severe headache, spots in her vision or pain in your upper stomach. - Discharge Plan *PRESCRIPTION DRUG MONITORING PROGRAM REVIEWED*: Not Applicable *COPY OF PRESCRIPTION DRUG MONITORING REPORT IN PATIENT BHAVIN: Not Applicable Home Medications: Home Meds PNV95/Ferrous Fumarate/FA [ Tablet] 1 tab PO DAILY 10/17/18 [History] Sertraline [Zoloft] 50 mg PO DAILY 10/17/18 [History] Acetaminophen [Tylenol] 650 mg PO Q6H PRN tablet 10/19/18 [Rx] Benzocaine/Menthol [Dermoplast Pain Relief Loving] 1 spray TOP ASDIRECTED PRN canister 10/19/18 [Rx] Docusate Sodium [Colace] 100 mg PO BID PRN cap 10/19/18 [Rx] Ferrous Sulfate 325 mg PO WITHBREAKFAST tablet 10/19/18 [Rx] Hydrocortisone Acetate [Anucort-HC] 25 mg RECTAL BID PRN supp 10/19/18 [Rx] Ibuprofen [Motrin] 600 mg PO Q6H PRN tablet 10/19/18 [Rx] Lanolin [Lansinoh HPA] 1 applic TOP ASDIRECTED PRN tube 10/19/18 [Rx] Witch Lidia [Tucks] 1 pad TOP ASDIRECTED PRN pad 10/19/18 [Rx] Patient Handouts: Hypertension During , [id number], Vaginal Delivery , Care After Referrals: Lorenzo Haley MD [Physician] - (Follow-up in 1 week for routine blood pressure check and visit or earlier as needed.) - Discharge Summary/Plan Comment DC Time >30 min.: No - Patient Data Vitals - Most Recent: Last Vital Signs Temp 36.1 C 10/19/18 00:15 Pulse 73 10/19/18 00:15 Resp 14 10/19/18 00:15 BP 122/90 10/19/18 00:15 Pulse Ox 99 10/19/18 00:15 Weight - Most Recent: 103.419 kg Lab Results - Last 24 hrs: Laboratory Results - last 24 hr 10/17/18 Range/Units 14:14 RPR Non-reactive (NONREACTIVE) Med Orders - Current: Current Medications Acetaminophen (Tylenol) 650 mg PO Q6H PRN PRN Reason: mild pain or fever Last Admin: 10/19/18 00:15 Dose: 650 mg Benzocaine/Menthol (Dermoplast Pain Relief Loving) 0 gm TOP ASDIRECTED PRN PRN Reason: Perineal Comfort Measure Last Admin: 10/18/18 04:16 Dose: 1 can Docusate Sodium (Colace) 100 mg PO BID PRN PRN Reason: Constipation Last Admin: 10/18/18 04:15 Dose: 100 mg Emollient Ointment (Lansinoh Hpa) 0 gm TOP ASDIRECTED PRN PRN Reason: Sore Nipples Last Admin: 10/18/18 04:14 Dose: 1 applic Ferrous Sulfate (Ferrous Sulfate) 325 mg PO WITHBREAKFAST [facility] Last Admin: 10/18/18 08:10 Dose: 325 mg Hydrocortisone Acetate (Anucort-Hc) 25 mg RECTAL BID PRN PRN Reason: Hemorrhoid pain Oxytocin/Lactated Ringer's (Pitocin In Lr 10 Units/1,000 Ml) 10 unit in 1,000 mls @ 100 mls/hr IV TITRATE HEMANTH; Protocol Ibuprofen (Motrin) 600 mg PO Q6H PRN PRN Reason: Mild pain or fever Last Admin: 10/19/18 05:35 Dose: 600 mg Misoprostol (Cytotec) 1,000 mcg RECTAL ONETIME PRN PRN Reason: excessive vaginal bleeding Last Admin: 10/18/18 01:40 Dose: 1,000 mcg Prenat Multivit/Reverberatory Furnace Supervisor/Iron/Folic Ac ( Plus Iron) 1 each PO DAILY [facility] Last Admin: 10/18/18 08:10 Dose: 1 each Sertraline HCl (Zoloft) 50 mg PO DAILY [facility] Last Admin: 10/18/18 08:10 Dose: 50 mg Witch Lidia (Tucks) 1 pad TOP ASDIRECTED PRN PRN Reason: Perineal Comfort Measure Last Admin: 10/18/18 04:15 Dose: 1 canister Discontinued Medications Acetaminophen/Butalbital/Caffeine (Fioricet 325-50-40 Mg) 2 tab PO ONETIME ONE Stop: 10/17/18 14:57 Last Admin: 10/17/18 19:20 Dose: Not Given Diphenhydramine HCl (Benadryl) 25 mg IVPUSH Q6H PRN PRN Reason: pruritis Ephedrine Sulfate (Ephedrine Sulfate) 5 mg IVPUSH ASDIRECTED PRN PRN Reason: Hypotension Fentanyl (Sublimaze) 100 mcg EPIDUR Q3H PRN PRN Reason: Pain Last Admin: 10/17/18 20:55 Dose: 100 mcg Fentanyl/Bupivacaine HCl (Fentanyl/Bupivacaine/Ns 2 Mcg-0.125% 100 Ml) 100 ml EPIDUR ASDIRECTED PRN PRN Reason: Pain Last Admin: 10/17/18 20:54 Dose: 100 ml Lactated Ringer's (Ringers, Lactated) 1,000 mls @ 100 mls/hr IV ASDIRECTED HEMANTH Last Admin: 10/18/18 00:42 Dose: 100 mls/hr Oxytocin/Lactated Ringer's (Pitocin In Lr 10 Units/1,000 Ml) 10 unit in 1,000 mls @ 12 mls/hr IV TITRATE HEMANTH; Protocol Last Titration: 10/17/18 18:35 Dose: 6 munits/min, 36 mls/hr Oxytocin/Lactated Ringer's (Pitocin In Lr 10 Units/1,000 Ml) 10 unit in 1,000 mls @ 500 mls/hr IV .CONTINUOUS HEMANTH Last Admin: 10/18/18 03:08 Dose: 500 mls/hr Misoprostol (Cytotec) Confirm Administered Dose 200 mcg .ROUTE .[facility] Stop: 10/18/18 01:33 Last Admin: 10/18/18 20:43 Dose: Not Given Nalbuphine HCl (Nubain) 10 mg IVPUSH Q2H PRN PRN Reason: Pain Ondansetron HCl (Zofran) 4 mg IVPUSH Q4H PRN PRN Reason: Nausea/Vomiting Sodium Chloride (Saline Flush) 10 ml FLUSH ASDIRECTED PRN PRN Reason: Keep Vein Open
[2018-10-19] MEDS: Sertraline 50 MG Tab PO SCH (10:26)
[2018-10-19] MEDS: Prenatal Multivitamin with Calcium/Folic Acid/Iron Tab PO SCH (10:26)
[2018-10-19] MEDS: Ferrous Sulfate 325 MG Tab PO SCH (10:26)
[2018-10-19 11:04] VITALS: BP 137/89
== END 2018-10-19 14:10 | disposition home or self-care (01) | DRG 560 ==
LOC: JD.OBCHECK 13:55 → JD.OB 14:07 → JD.OBCHECK 16:33 → JD.OB 16:34 → OBSVTOIN 10-18 01:21 → JD.OB 10-18 01:22
PROVIDERS: ADMIT Obstetrics & Gynecology; ATTEND Obstetrics & Gynecology
PROC: 10E0XZZ Delivery of Products of Conception, External Approach (ICD-10-PCS; principal; 2018-10-18)
PROC: 10907ZC Drainage of Amniotic Fluid, Therapeutic from Products of Conception, Via Natural or Artificial Opening (ICD-10-PCS; 2018-10-18)
PROC: 3E0P7VZ Introduction of Hormone into Female Reproductive, Via Natural or Artificial Opening (ICD-10-PCS; 2018-10-18)
PROC: 4A1HXCZ Monitoring of Products of Conception, Cardiac Rate, External Approach (ICD-10-PCS; 2018-10-18)
DX: O13.4 Gestational [pregnancy-induced] hypertension without significant proteinuria, complicating childbirth (principal); F41.9 Anxiety disorder, unspecified; F32.9 Major depressive disorder, single episode, unspecified; O99.344 Other mental disorders complicating childbirth; Z3A.38 38 weeks gestation of pregnancy; Z37.0 Single live birth
CPT/HCPCS: 01967; 36415; 51702; 59025; 59409; 80053; 81001; 82570; 84156; 85025; 86592; A9270-GY; J2590; J3010; J3490; J7120

== ENCOUNTER 2022-06-07 16:46 | Emergency (ER) | payer BC, MEDICAID ==
[2022-06-07] MEDS ORDERED: Meclizine 25 MG Tab PO ONE (17:54)
[2022-06-07] MEDS ORDERED: Acetaminophen 325 MG Tab PO ONE (20:39)
== END 2022-06-07 21:10 | disposition home or self-care (01) ==
LOC: JD.ED 16:46
DX: S00.81XA Abrasion of other part of head, initial encounter (principal); I10 Essential (primary) hypertension; Y04.0XXA Assault by unarmed brawl or fight, initial encounter
CPT/HCPCS: 70450; 70486; 71046; 73610; 99284; A9270; 99283

== ENCOUNTER 2024-06-21 07:54 | Emergency (ER) | payer MEDICAID ==
[2024-06-21] MEDS: Ondansetron 4 MG/2 ML SDV IVPUSH ONE (08:33)
[2024-06-21] MEDS: Lactated Ringers 1,000 ML IV ONE (08:36)
[2024-06-21 08:57] LABS: BASOPHILS ABSOLUTE AUTO 0.1 K/mm3 (0.0-0.2); BASOPHILS PERCENT AUTO 0.6 % (0.0-1.0); EOSINOPHILS ABSOLUTE AUTO 0.3 K/mm3 (0.0-0.4); EOSINOPHILS PERCENT AUTO 2.6 % (0.0-6.0); HEMATOCRIT 46.8 % (37.0-47.0); HEMOGLOBIN 15.7 gm/dl (12.0-16.0); IMMATURE GRAN ABSOLUTE AUTO 0.07 K/mm3 (0.00-0.05); IMMATURE GRAN PERCENT AUTO 0.7 % (0.0-0.4); LYMPHOCYTES ABSOLUTE AUTO 2.4 K/mm3 (1.0-4.8); MEAN CORPUSCULAR HEMOGLOBIN 29.8 pg (28.0-32.0); MEAN CORPUSCULAR HGB CONC 33.5 g/dl (32.0-36.0); MEAN CORPUSCULAR VOLUME 88.8 fl (83.0-99.0); MEAN PLATELET VOLUME 9.1 fl (9.4-12.3); MONOCYTES ABSOLUTE AUTO 1.1 K/mm3 (0.0-0.8); MONOCYTES PERCENT AUTO 11.3 % (0.0-8.0); NEUTROPHILS PERCENT AUTO 60.8 % (41.0-71.0); PLATELET COUNT,PLT 268 K/mm3 (150-400); RED BLOOD CELL COUNT 5.27 M/mm3 (4.10-5.30); WHITE BLOOD CELL COUNT,WBC 9.91 K/mm3 (3.9-11.3)
[2024-06-21 09:32] LABS: ALBUMIN 3.5 g/dl (3.4-5.0); ANION GAP 11.6 (5-15); BILIRUBIN TOTAL 0.5 mg/dL (0.2-1.0); BUN/CREATININE RATIO 21.3 (14-18); CALCIUM 8.4 mg/dL (8.5-10.1); CREATININE 0.8 mg/dL (0.55-1.02); EST CRCL DRUG DOSING (CG) 91.68 mL/min; MAGNESIUM 2.2 mg/dL (1.8-2.4); POTASSIUM,K 3.6 mEq/L (3.5-5.1); PROTEIN TOTAL,TP 7.2 g/dl (6.4-8.2)
[2024-06-21] MEDS: Meclizine 25 MG Tab PO ONE (10:51)
== END 2024-06-21 10:50 | disposition home or self-care (01) ==
LOC: JD.ED 07:54
DX: R19.7 Diarrhea, unspecified (principal); R11.2 Nausea with vomiting, unspecified; Z79.899 Other long term (current) drug therapy
CPT/HCPCS: 36415; 80053; 83735; 85025; 96361; 96374; 99284; A9270; J2405; J7120; 99283